=== PATIENT | female | born 1945 | race Caucasian/White ===

== ENCOUNTER 2016-10-19 11:23 | Emergency (ER) ==
[2016-10-19] MEDS ORDERED: NS 1,000 ML IV ONE (11:39)
--- NOTE | 2016-10-19 11:41 | PROVIDER DOCUMENTATION ---
HPI-Syncope/Dizziness - General Chief Complaint: Near Syncope Stated Complaint: syncope Time Seen by Provider: 10/19/16 11:28 Source: patient, EMS Allergies/Adverse Reactions: Patient Allergies Allergy/AdvReac Type Severity Reaction Status Date / Time Penicillins Allergy RASH Verified 08/14/15 16:45 Home Medications: Home Medication List Medication Instructions Recorded Confirmed Last Taken Type Hydrocodone/APAP 10 mg/325 mg 10 mg TID 06/04/14 08/14/15 08/14/15 07:00 History [Regina-10] Levothyroxine [Synthroid] 75 mg PO DAILY 06/04/14 08/14/15 08/14/15 07:00 History Lorazepam [Ativan] 2 mg PO TID 06/04/14 08/14/15 08/14/15 07:00 History Levetiracetam [Keppra] 500 mg PO BID #60 tablet 08/15/15 Unknown Rx - History of Present Illness-Syncope/Dizzy Nature of Presenting Problem: Patient is a 71 y/o F that presents to the ER via EMS after syncopal episode. patient is confused about events that happened. She has had history of syncope and been worked up by . Patient denies chest pain or palpitations. reports having nausea and needing phenergan. She also reports not taking her medications yet. Prior Episodes: reports: single episode today, remote history Onset/Duration: reports: abrupt, just prior to arrival Timing: reports: improving Position/Activity at time of episode: reports: standing (walking) Symptoms prior to episode: reports: none Context: reports: lost consciousness Loss of Consciousness: brief (seconds) Location of injury. (If syncope resulted in an injury.): reports: none Current Symptoms: reports: nausea, weakness. denies: fever, short of breath, vomiting, lightheaded, dizzy, headache Similar symptoms previously: reports: previous diagnosis, tests, workup for same problem Review of Systems - Adult - REVIEW OF SYSTEMS - ADULT Constitutional: denies: chills, fever Eyes: denies: decreased vision, blurred vision, double vision Ears, Nose, Mouth & Throat: denies: ear pain, sinus problem, throat pain, throat swelling Cardiovascular: reports: syncope. denies: chest pain, palpitations Respiratory: denies: cough, shortness of breath, wheezing Gastrointestinal: reports: nausea. denies: abdominal pain, diarrhea, vomiting Genitourinary: reports: no symptoms reported Musculoskeletal: reports: muscle weakness. denies: back pain, joint pain, neck pain Integumentary: reports: no symptoms reported Neurological: reports: syncope. denies: dizziness/vertigo, headache/migraines, seizure Psychiatric: reports: no symptoms reported Endocrine: reports: no symptoms reported Hematologic/Lymphatic: reports: no symptoms reported Allergic/Immunologic: reports: no symptoms reported All Other Systems: Reviewed and Negative Past History - Adult - PAST MEDICAL HISTORY-ADULT Review of Records: reports: Old Records Reviewed, Nursing Assessment Review, Medications Reviewed Cardiovascular: reports: HTN Musculoskeletal: reports: chronic pain, fibromyalgia Psychiatric: reports: anxiety Endocrine/Immune: reports: cancer (melanoma), thyroid disorder - PRIOR SURGERIES/PROCEDURES Surgical/Procedure History: reports: hysterectomy, back/neck - IMMUNIZATION STATUS Childhood Immunizations: See Nurse Assessment Flu Vaccine: See Nurse Assessment - FAMILY HISTORY Family History: reviewed, not pertinent - SOCIAL HISTORY Smoking: cigarettes, less than 1 pack/day Living Situation: family Physical Exam-General - PHYSICAL EXAM-ADULT Initial Vital Signs Reviewed: Yes - CONSTITUTIONAL General Appearance: alert, no apparent distress - EYES Eyes: PERRL/EOMI, pink conjunctivae - HEAD, EARS, NOSE, MOUTH & THROAT HENMT: normocephalic/atraumatic, moist mucous membranes, normal ENT inspection - NECK Neck: non-tender, full range of motion, normal inspection - RESPIRATORY Respiratory: lungs clear, normal breath sounds, no respiratory distress, no accessory muscle use - CARDIOVASCULAR Cardiovascular: regular rate, rhythm, no edema, no murmur - GASTROINTESTINAL (ABDOMEN) Abdominal Exam: normal bowel sounds, non tender, soft, no organomegaly, no pulsatile mass - MUSCULOSKELETAL Back Exam: no CVA tenderness, no vertebral tenderness Extremity: normal range of motion, non-tender, normal inspection, no pedal edema , normal capillary refill, pelvis stable - SKIN Integumentary: normal color, warm/dry - NEUROLOGIC 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 She might have sat on ground prior to have a seizure( history of seizures) Vital Signs Temp Pulse Resp BP Pulse Ox 10/19/16 11:32 97.5 F L 68 20 122/83 99 Penicillins Allergy (Verified 08/14/15 16:45) RASH Hydrocodone/APAP 10 mg/325 mg [Regina-10] 10 mg TID 06/04/14 Levothyroxine [Synthroid] 75 mg PO DAILY 06/04/14 Lorazepam [Ativan] 2 mg PO TID 06/04/14 Levetiracetam [Keppra] 500 mg PO BID #60 tablet 08/15/15 Laboratory 10/19/16 10/19/16 10/19/16 13:00 13:00 12:34 WBC RBC Hgb Hct MCV MCH MCHC RDW Std Deviation Plt Count MPV Immature Gran % (Auto) Neut % (Auto) Lymph % (Auto) [place] % (Auto) Eos % (Auto) Baso % (Auto) Immature Gran # (Auto) Neut # (Auto) Lymph # (Auto) [place] # (Auto) Eos # (Auto) Baso # (Auto) PT 14.0 INR 1.05 APTT (Factor Assay) 32.6 Sodium Potassium Chloride Carbon Dioxide Anion Gap BUN Creatinine Estimated GFR/1.73 m2 BUN/Creatinine Ratio Glucose Calculated Osmolality Calcium Total Bilirubin AST ALT Alkaline Phosphatase Creatine Kinase Troponin T Total Protein Albumin Globulin Albumin/Globulin Ratio Plasma Lactate Urine Source CLEAN CATCH Urine Color YELLOW Urine Clarity CLEAR Urine pH 6.5 Ur Specific [place] 1.010 Urine Protein NEGATIVE Urine Ketones NEGATIVE Urine Blood NEGATIVE Urine Nitrite NEGATIVE Urine Bilirubin NEGATIVE Urine Urobilinogen NORMAL Urine WBC NEGATIVE Urine Glucose NEGATIVE Urine Opiates Screen PRESUMPTIVE POSITIVE A Ur Oxycodone Screen NONE DETECTED Urine Methadone Screen NONE DETECTED Ur Barbituates Screen NONE DETECTED Ur Tricyclics Screen NONE DETECTED Ur Phencyclidine Scrn NONE DETECTED Ur Amphetamines Screen NONE DETECTED U Methamphetamines Scrn NONE DETECTED Urine MDMA Screen NONE DETECTED U Benzodiazepines Scrn NONE DETECTED Urine Cocaine Screen NONE DETECTED U Cannabinoids Screen NONE DETECTED Plasma/Serum Ethyl Alc 10/19/16 10/19/16 10/19/16 12:34 12:34 12:34 WBC 6.60 RBC 3.96 L Hgb 12.1 Hct 36.7 L MCV 92.7 MCH 30.6 MCHC 33.0 RDW Std Deviation 13.1 Plt Count 290 MPV 9.9 Immature Gran % (Auto) 0.2 Neut % (Auto) 71.9 Lymph % (Auto) 20.9 [place] % (Auto) 5.0 Eos % (Auto) 0.9 Baso % (Auto) 1.1 H Immature Gran # (Auto) 0.01 Neut # (Auto) 4.75 Lymph # (Auto) 1.38 [place] # (Auto) 0.33 Eos # (Auto) 0.06 Baso # (Auto) 0.07 PT INR APTT (Factor Assay) Sodium Potassium Chloride Carbon Dioxide Anion Gap BUN Creatinine Estimated GFR/1.73 m2 BUN/Creatinine Ratio Glucose Calculated Osmolality Calcium Total Bilirubin AST ALT Alkaline Phosphatase Creatine Kinase Troponin T < 0.010 Total Protein Albumin Globulin Albumin/Globulin Ratio Plasma Lactate Urine Source Urine Color Urine Clarity Urine pH Ur Specific [place] Urine Protein Urine Ketones Urine Blood Urine Nitrite Urine Bilirubin Urine Urobilinogen Urine WBC Urine Glucose Urine Opiates Screen Ur Oxycodone Screen Urine Methadone Screen Ur Barbituates Screen Ur Tricyclics Screen Ur Phencyclidine Scrn Ur Amphetamines Screen U Methamphetamines Scrn Urine MDMA Screen U Benzodiazepines Scrn Urine Cocaine Screen U Cannabinoids Screen Plasma/Serum Ethyl Alc 10/19/16 10/19/16 12:34 12:34 WBC RBC Hgb Hct MCV MCH MCHC RDW Std Deviation Plt Count MPV Immature Gran % (Auto) Neut % (Auto) Lymph % (Auto) [place] % (Auto) Eos % (Auto) Baso % (Auto) Immature Gran # (Auto) Neut # (Auto) Lymph # (Auto) [place] # (Auto) Eos # (Auto) Baso # (Auto) PT INR APTT (Factor Assay) Sodium 138 Potassium 3.4 L Chloride 103 Carbon Dioxide 23 L Anion Gap 13 BUN 14 Creatinine 1.0 H Estimated GFR/1.73 m2 55 BUN/Creatinine Ratio 14 Glucose 168 H Calculated Osmolality 280 Calcium 9.0 Total Bilirubin 0.20 AST 15 ALT 7 L Alkaline Phosphatase 84 Creatine Kinase 64 Troponin T Total Protein 6.9 Albumin 4.0 Globulin 3.0 Albumin/Globulin Ratio 1.0 Plasma Lactate 3.4 H Urine Source Urine Color Urine Clarity Urine pH Ur Specific [place] Urine Protein Urine Ketones Urine Blood Urine Nitrite Urine Bilirubin Urine Urobilinogen Urine WBC Urine Glucose Urine Opiates Screen Ur Oxycodone Screen Urine Methadone Screen Ur Barbituates Screen Ur Tricyclics Screen Ur Phencyclidine Scrn Ur Amphetamines Screen U Methamphetamines Scrn Urine MDMA Screen U Benzodiazepines Scrn Urine Cocaine Screen U Cannabinoids Screen Plasma/Serum Ethyl Alc Orders Category Date Time Status Cardiac Monitoring DIRECTED Care 10/19/16 11:41 Active Saline Loc NOW Care 10/19/16 11:41 Active CHEST-1 VIEW [RAD] Stat Exams 10/19/16 11:41 Completed HEAD W/O CONTRAST [CT] Stat Exams 10/19/16 11:41 Draft ALCOHOL BLOOD Stat Lab 10/19/16 12:34 Completed CBC WITH ELECTRONIC DIFF [HEME] Stat Lab 10/19/16 12:34 Completed CK PROFILE [SP CHEM] Stat Lab 10/19/16 12:34 Completed COMPREHENSIVE METABOLIC PANEL [CHEM] Stat Lab 10/19/16 12:34 Completed LACTATE, PLASMA [CHEM] Stat Lab 10/19/16 12:34 Completed PROTIME WITH INR PL [COAG] Stat Lab 10/19/16 12:[address] [COAG] Stat Lab 10/19/16 12:34 Completed TROPONIN T Stat Lab 10/19/16 12:[address] W/POSS RFLX CULT [URINALYSIS] Stat Lab 10/19/16 13:00 Results [address] DRUG SCREEN [address] Stat Lab 10/19/16 13:00 Completed 0.9% Sodium Chloride Inj [Ns] 1,000 ml Med 10/19/16 11:39 Discontinued IV 500 mls/hr Pulse Oximetry Stat Oth 10/19/16 11:41 Active EKG [EKG] Stat Ther 10/19/16 11:41 Draft pt will be d/c home to f/u with pcp, pt was clinically and neurologically stable , pt wants to go eat Syrian food with they are talking about which place - EKG 1 Time of EKG reading by physician:: 11:49 EKG Read and Signed by:: Vita Torrez EKG Interpretation (*Must complete 3 of following elements*): Normal Rate: 69 Rhythm: NSR Mona: normal QRS: normal [place] Interval: normal ST Wave: normal - XRAY 1 XRAY Study: Chest Impression: Normal XRAY Interpretation: nad - CT/MRI 1 CT Study: Head Impression: Normal CT Results: nad Departure - Departure Time of Disposition Order: 14:07 DIAGNOSIS: Near syncope Disposition: HOME 01 Certified Medical Emergency: Emergent Condition: Stable Additional Instructions: ED Follow Up Instructions: You have been treated by a care provider in the Emergency Department. These instructions are being provided to you so you can have an understanding of how to care for yourself upon discharge. Upon discharge from the Emergency Department, you are responsible for making arrangements for follow-up care by a physician of your choice. Take all prescribed medications as directed. Return to the Emergency Department immediately for any new or worsening symptoms. You may call the Physician Referral phone number at [phone] to obtain a list of Physicians who are taking new patients. Referrals: Piero Dao MD [Primary Care Provider] - Call for Appoint. 1-2days Instructions: Near-Syncope, [id number] Attestation - Scribe Verification/Attestation Scribe:: Arsenio Loza Acting as Scribe for:: Vita Torrez Scribe documention review:: This chart was documented by a scribe and accurately reflects the service the provider performed and the decisions made by the provider. Physician Attestation - Physician Attestation I, the provider, attest to the following statement:: Vita Torrez Physician documentation Attestation:: This documentation recorded by the scribe accurately reflects the service I personally performed and the decisions made by me.
--- NOTE | 2016-10-19 12:03 | EKG Report ---
Test Performed on : 10/19/2016 11:49:42 AM Test Reason : AMS Blood Pressure : / mmHG Vent. Rate : 069 BPM Atrial Rate : 069 BPM P-R Int : 158 ms QRS Dur : 078 ms QT Int : 406 ms P-R-T Axes : 067 060 049 degrees QTc Int : 435 ms Normal sinus rhythm. Normal ECG No previous ECGs available Unconfirmed Result
[2016-10-19 12:49] LABS: MANUAL DIFF NEEDED? NO
[2016-10-19 12:56] LABS: BASO% 1.1 % (0.0-0.8); EOS# 0.06 X1000 (0.0-0.7); EOS% 0.9 % (0.0-10.0); HEMATOCRIT 36.7 % (37.0-47.0); HEMOGLOBIN 12.1 g/dL (12.0-16.0); IMM GRAN# 0.01 X1000 (0.0-0.04); IMM GRAN% 0.2 % (0.0-0.5); LYMPH# 1.38 X1000 (1.2-3.4); LYMPH% 20.9 % (20.5-51.1); MCH 30.6 PG (27-31); MCV 92.7 FL (81-99); MONO# 0.33 X1000 (0.11-0.59); MPV 9.9 FL (7.4-10.4); NEUT% 71.9 % (42.2-75.2); PLT 290 X1000 (130-400); RBC 3.96 XMIL (4.2-5.4)
[2016-10-19 13:17] LABS: INR 1.05 (0.86-1.15)
[2016-10-19 13:18] LABS: POTASSIUM 3.4 mmol/L (3.5-5.1); PTT PL 32.6 Seconds (22.6-43.9); TOTAL BILIRUBIN 0.2 mg/dL (0.20-1.00); TOTAL PROTEIN 6.9 g/dL (6.3-8.3)
[2016-10-19 13:25] LABS: URINE CULTURE PL NEEDED? NO; URINE SOURCE CLEAN CATCH
--- NOTE | 2016-10-19 13:37 | Diag Imaging Result Document ---
PROCEDURE NAME: CHEST-1 VIEW - 10/19/2016 AP CHEST: FINDINGS: There is no evidence of acute cardiac or pulmonary disease. Compared to 06/04/2014, there has been no significant change. IMPRESSION: No acute disease.
--- NOTE | 2016-10-19 13:50 | Diag Imaging Result Document ---
PROCEDURE NAME: HEAD W/O CONTRAST - 10/19/2016 CT OF THE HEAD WITHOUT CONTRAST: FINDINGS: There are calcifications in the internal carotid arteries bilaterally. There is hyperostosis of the calvarium. There is no evidence of bleed, mass effect, or abnormal extra- axial fluid collection. Compared to 08/14/2015, there has been no significant change in the appearance of the brain. IMPRESSION: No evidence of acute disease.
[2016-10-19 13:51] LABS: BILIRUBIN URINE NEGATIVE (NEGATIVE); BLOOD URINE NEGATIVE (NEGATIVE); CLARITY CLEAR (CLEAR); COLOR YELLOW; GLUCOSE URINE NEGATIVE (NEGATIVE); LEUKOCYTES URINE NEGATIVE (NEGATIVE); NITRITE URINE NEGATIVE (NEGATIVE); PH URINE 6.5; PROTEIN URINE NEGATIVE (NEGATIVE); UROBILINOGEN URINE NORMAL
[2016-10-19 13:54] LABS: UR AMPHETAMINES QUAL NONE DETECTED (NONE DETECT); UR BARBITUATES QUAL NONE DETECTED (NONE DETECT); UR BENZODIAZEPIN QUAL NONE DETECTED (NONE DETECT); UR CANNABINOIDS QUAL NONE DETECTED (NONE DETECT); UR COCAINE QUAL NONE DETECTED (NONE DETECT); UR MDMA QUAL NONE DETECTED (NONE DETECT); UR METHADONE QUAL NONE DETECTED (NONE DETECT); UR METHAMPHETAMINE QUAL NONE DETECTED (NONE DETECT); UR OPIATES QUAL PRESUMPTIVE POSITIVE (NONE DETECT); UR OXYCODONE QUAL NONE DETECTED (NONE DETECT); UR PCP QUAL NONE DETECTED (NONE DETECT); UR TCA QUAL NONE DETECTED (NONE DETECT)
[2016-10-19 13:55] LABS: URINE EPITHELIAL CELLS <10 /HPF (<10); URINE RBC <10 /HPF (<10); URINE WBC <10 /HPF (<10)
[2016-10-19 14:29] VITALS: BP 151/91
== END 2016-10-19 19:04 | disposition home or self-care (01) ==
LOC: P.ED 11:23
DX: R55 Syncope and collapse (principal); R11.0 Nausea; M62.81 Muscle weakness (generalized); I10 Essential (primary) hypertension; M79.7 Fibromyalgia; G89.29 Other chronic pain; Z85.820 Personal history of malignant melanoma of skin; E07.9 Disorder of thyroid, unspecified; Z79.899 Other long term (current) drug therapy; F41.9 Anxiety disorder, unspecified; F17.210 Nicotine dependence, cigarettes, uncomplicated
CPT/HCPCS: 36415; 70450; 71010; 80053; 80305; 81001; 82550; 82948; 83605; 84484; 85025; 85610; 85730; 93005; 96360; 96361; G0480; J7030; 80320

== ENCOUNTER 2019-08-29 21:48 | Inpatient (IN) ==
[2019-08-29] MEDS ORDERED: NS 500 ML IV ONE (22:18)
--- NOTE | 2019-08-29 22:23 | EKG Report ---
Test Performed on : 08/29/2019 9:56:42 PM Test Reason : weakness Blood Pressure : / mmHG Vent. Rate : 098 BPM Atrial Rate : 098 BPM P-R Int : 134 ms QRS Dur : 082 ms QT Int : 336 ms P-R-T Axes : 047 043 056 degrees QTc Int : 428 ms Normal sinus rhythm. Normal ECG When compared with ECG of 18-OCT-2018 20:49, No significant change was found Unconfirmed Result
[2019-08-29 22:24] LABS: URINE SOURCE CATH
[2019-08-29 22:30] LABS: BASO# 0.07 X1000 (0.0-0.2); BASO% 0.9 % (0.0-0.8); EOS# 0.03 X1000 (0.0-0.7); EOS% 0.4 % (0.0-10.0); HEMATOCRIT 31.5 % (37.0-47.0); HEMOGLOBIN 10.1 g/dL (12.0-16.0); IMM GRAN# 0.13 X1000 (0.0-0.04); IMM GRAN% 1.7 % (0.0-0.5); LYMPH# 1.74 X1000 (1.2-3.4); LYMPH% 22.9 % (20.5-51.1); MCH 29.8 PG (27-31); MCHC 32.1 g/dL (33-37); MCV 92.9 FL (81-99); MONO# 0.87 X1000 (0.11-0.59); MONO% 11.5 % (1.7-9.3); NEUT# 4.75 X1000 (1.4-6.5); NEUT% 62.6 % (42.2-75.2); PLT 215 X1000 (130-400); RBC 3.39 XMIL (4.2-5.4); RDW 13.3 % (11.5-14.5); WBC 7.59 X1000 (4.8-10.8)
[2019-08-29 22:36] LABS: BILIRUBIN URINE NEGATIVE (NEGATIVE); BLOOD URINE NEGATIVE (NEGATIVE); COLOR YELLOW; GLUCOSE URINE NEGATIVE (NEGATIVE); KETONE URINE NEGATIVE (NEGATIVE); LEUKOCYTES URINE NEGATIVE (NEGATIVE); NITRITE URINE NEGATIVE (NEGATIVE); PH URINE 5.5; PROTEIN URINE 30 mg/dL (NEGATIVE); SP GRAVITY URINE 1.021; TURBIDITY URINE HAZY (CLEAR); UROBILINOGEN URINE NORMAL (NORMAL)
[2019-08-29 22:38] LABS: INR 1.09; PROTIME 14.7 Seconds (11.0-16.0)
[2019-08-29 22:39] LABS: PTT 40.4 Seconds (22.3-41.8)
[2019-08-29 22:45] LABS: ALBUMIN 3.6 g/dL (3.5-5.0); CALCIUM 10.9 mg/dL (8.8-10.2); CREATININE 1.7 mg/dL (0.5-0.9); POTASSIUM 4.1 mmol/L (3.5-5.1); TOTAL BILIRUBIN 0.5 mg/dL (0.20-1.00); TOTAL PROTEIN 7.3 g/dL (6.3-8.3)
[2019-08-29 22:51] LABS: UR EPITHELIAL CELLS <10 /HPF (<10); URINE BACTERIA 2+ /HPF; URINE CASTS GRANULAR PRESENT; URINE CRYSTALS NONE SEEN; URINE RBC <10 /HPF (<10); URINE SMALL ROUND CELLS NONE SEEN; URINE WBC <10 /HPF (<10); URINE YEAST NONE SEEN
[2019-08-30 00:01] LABS: INFLUENZA A NEGATIVE (NEGATIVE); INFLUENZA B NEGATIVE (NEGATIVE)
[2019-08-30] MEDS ORDERED: NS 500 ML IV ONE (00:37)
[2019-08-30 03:39] LABS: BE 0.5 mmoll (-3.0-3.0); BLOOD TYPE ARTERIAL; HCO3-(ACT) 25.2 mmoll (20.0-26.0); METHB 1.6 % (0.0-1.5); O2(CT) 12.4 mL/dL (15.0-23.0); O2HB 92.6 % (95.0-99.0); PCO2(98.6) 35 mmHg (35-45); PO2(98.6) 68 mmHg (60-100); SAMPLE BLOOD; THB 9.5 g/dL (11.5-17.4); pH(98.6) 7.45 (7.35-7.45)
[2019-08-30 03:41] LABS: ALLEN TEST YES; MODALITY ROOM AIR
[2019-08-30] MEDS ORDERED: ZOFRAN ODT PO PRN (05:09)
[2019-08-30] MEDS ORDERED: NS 1,000 ML IV SCH (05:09)
--- NOTE | 2019-08-30 05:40 | Diag Imaging Result Doc PS360 ---
EXAM: CT THORAX W/O CONTRAST HISTORY: multiple recent falls. R rib pain TECHNIQUE: CT chest without intravenous contrast COMPARISON: None. FINDINGS: Trace right pleural fluid. No left pleural fluid. No pneumothoraces. No lung contusion. No cardiomegaly. No aortic aneurysm. There is at least moderate coronary artery atherosclerosis. No enlarged mediastinal or hilar lymph nodes. No distinct lung nodules. There are multiple small lytic lesions scattered throughout the thoracic spine. There are multiple bilateral ribs with lytic destructive areas. Poorly defined soft tissue masslike area posteriorly in the mid right breast measuring 14 x 20 mm. IMPRESSION: 1.Scattered lytic lesions throughout the skeleton highly suspicious for bony metastases 2.Possible right breast mass. Mammography recommended. 3.A preliminary report was given at 2:38 AM This exam was performed using automated exposure control, adjustment of mA or kV according to patient size, and/or use of iterative reconstruction technique. Electronically signed by Tee Joshua 08/30/2019 5:37 AM
--- NOTE | 2019-08-30 05:45 | Diag Imaging Result Doc PS360 ---
EXAM: CHEST-1 VIEW HISTORY: weakness, cough, R rib pain. TECHNIQUE: Single view COMPARISON: 10/19/2016 FINDINGS: The lungs are well expanded. No pneumothoraces. The heart is not enlarged. The vessels are not distended. There are increased interstitial markings in the left lung base. No effusion identified. IMPRESSION: Small infiltrate in the left lung base. Electronically signed by Tee Joshua 08/30/2019 5:42 AM
[2019-08-30] MEDS: TYLENOL PO PRN (06:13)
--- NOTE | 2019-08-30 12:57 | Diag Imaging Result Doc PS360 ---
CT HEAD W/O CONTRAST - 08/30/2019 INDICATION: rule out mets/lethargy COMPARISON: 10/18/2018 FINDINGS: The ventricles and sulci are normal in size and contour. No intracranial mass or hemorrhage. The skull is intact. The sinuses mastoids and middle ears are clear. IMPRESSION: Negative exam. This exam was performed using automated exposure control, adjustment of mA or kV according to patient size, and/or use of iterative reconstruction technique Electronically signed by David Carrillo 08/30/2019 12:55 PM
[2019-08-30] MEDS ORDERED: KEPPRA PO SCH (14:45)
[2019-08-30] MEDS: NS 1,000 ML IV SCH (15:51)
[2019-08-30] MEDS: AVAPRO PO SCH (15:51)
--- NOTE | 2019-08-30 15:53 | PKW MAMMO BIRAD PRINTS ---
DIGITAL BILAT MAMMOGRAM DIAG, US BREAST LIMITED UNILAT-RT 08/30/2019 COMPARISON: There are no comparison films TECHNIQUE: Computer aided detection imaging was used. FINDINGS: There are benign calcifications in the breasts. No suspicious calcifications. Mild asymmetry in the parenchymal distribution. There is increased density posteriorly in the outer right breast. This area is only partly included on the exam. Ultrasound demonstrates a 13 x 15 x 23 mm hypoechoic solid irregular mass with posterior shadowing. IMPRESSION: Suspicious mass in the right posterior breast. Biopsy recommended. ACR BI-RADS CATEGORY 5: HIGHLY SUGGESTIVE OF MALIGNANCY, APPROPRIATE ACTION SHOULD BE TAKEN. NOTE: This facility is accredited by the [employer] for Mammography. A mammogram report should not delay biopsy if a dominant or clinically suspicious mass is present. Some cancers are not identified by mammography. Adenosis and dense breasts may obscure any underlying neoplasm Electronically signed by Tee Joshua 08/30/2019 3:51 PM
[2019-08-30] MEDS: ULTRAM PO PRN (15:55)
[2019-08-30] MEDS ORDERED: ATIVAN PO SCH (21:00)
[2019-08-31] MEDS: ATIVAN PO SCH ×3 (01:20→20:31)
[2019-08-31] MEDS: NS 1,000 ML IV SCH ×3 (01:21→18:50)
[2019-08-31] MEDS: AVAPRO PO SCH ×3 (01:21→20:31)
[2019-08-31] MEDS: SYNTHROID PO SCH (06:26)
[2019-08-31] MEDS: ULTRAM PO PRN (09:48)
[2019-08-31] MEDS: TYLENOL PO PRN (15:35)
[2019-09-01] MEDS: TYLENOL PO PRN (02:48)
[2019-09-01] MEDS: NS 1,000 ML IV SCH (02:50)
[2019-09-01 04:45] VITALS: BP 135/65
[2019-09-01] MEDS: SYNTHROID PO SCH (06:05)
[2019-09-01 08:09] LABS: BASO# 0.05 X1000 (0.0-0.2); BASO% 0.7 % (0.0-0.8); EOS# 0.17 X1000 (0.0-0.7); EOS% 2.4 % (0.0-10.0); HEMOGLOBIN 8.7 g/dL (12.0-16.0); IMM GRAN% 5.7 % (0.0-0.5); LYMPH# 2.31 X1000 (1.2-3.4); LYMPH% 32.9 % (20.5-51.1); MCH 29.6 PG (27-31); MCHC 31.1 g/dL (33-37); MCV 95.2 FL (81-99); MONO% 5.7 % (1.7-9.3); NEUT% 52.6 % (42.2-75.2); PLT 247 X1000 (130-400); RBC 2.94 XMIL (4.2-5.4); RDW 13.5 % (11.5-14.5); WBC 7.03 X1000 (4.8-10.8)
[2019-09-01 08:24] LABS: ALBUMIN 2.7 g/dL (3.5-5.0); CALCIUM 9.8 mg/dL (8.8-10.2); CREATININE 1.1 mg/dL (0.5-0.9); POTASSIUM 4.3 mmol/L (3.5-5.1); TOTAL BILIRUBIN 0.2 mg/dL (0.20-1.00); TOTAL PROTEIN 6.5 g/dL (6.3-8.3)
[2019-09-01] MEDS: AVAPRO PO SCH (08:56)
--- NOTE | 2019-09-01 10:36 | HISTORY AND PHYSICAL ---
HISTORY OF PRESENT ILLNESS: This is a 74-year-old female who presented to the emergency room brought in by EMS complaining of right shoulder pain that radiated to her chest. Not sure when the pain began. She is alert and oriented but drowsy and weak. She states she has been coughing a lot and having this sharp pain and cannot really remember when it started. Nothing she has done has really affected it, but her son brought her in mostly because she was kind of lethargic. PAST MEDICAL HISTORY: She has had previous hysterectomy but still has her ovaries, back and neck surgery, multiple melanomas taken off of her body in the past. She has a history of hypothyroidism for years on replacement therapy. No other problems with her adrenal glands, pituitary or parathyroids. She has a long-standing history of hypertension, long-standing history of thyroid hormonal replacement therapy. She has chronic pain and fibromyalgia for years. She has a history of uncomplicated hypertension. SOCIAL HISTORY: She is an ex-smoker, denies substance use. ALLERGIES: Azithromycin and penicillin. REVIEW OF SYSTEMS: It is sort of compromised because of her lethargic mental status. Constitutional: She denies any significant fever, chills, radiation, weight gain, weight loss. Eyes: No change in visual acuity. ENT: No irritation. EOMs intact. Nares patent. Oropharynx negative. Neck: Supple, bounding carotids. Without thyromegaly. Midline trachea. No lymphadenopathy. Chest: Rhonchi and diminished breath sounds bilaterally. No consolidative features. No rubs were appreciated. Cardiovascular: She has a regular rhythm and rate. No murmurs, gallops, clicks or rubs. Abdomen: Soft, no hepatosplenomegaly. No CVA tenderness. No melena, hematochezia or hematemesis. Breasts: Negative. Genitourinary: No dysuria, polyuria, pyuria. Musculoskeletal: She has some chronic joint pains in the right shoulder and right chest primarily. Skin: No lesions recently. Neurologic: No focal neurological deficits. No headaches, migraines, seizure disorder. Psychiatric: She has had some issues with depression in the past, chronic anxiety, chronic pain. Hematological: No bleeding or clotting issues. PHYSICAL EXAMINATION: VITAL SIGNS: At time of admission temperature 98.4, pulse 99, respiratory rate 20, blood pressure 102/64, O2 sat 93%. HEENT: Head was normocephalic. Eyes: PERRL, EOMs intact. SC clear. Nares patent. Oropharynx negative. NECK: Supple. Bounding carotids. Without thyromegaly or lymphadenopathy. CHEST: Diminished breath sounds bilaterally. BREASTS: Negative. ABDOMEN: No hepatosplenomegaly. No CVA tenderness. EXTREMITIES: Negative for clubbing, cyanosis or edema. NEUROLOGICAL: No focal neurological deficits. In the ER her chest x-ray on admission showed the lungs well expanded, no pneumothoraces. The heart is not enlarged. Vessels are not distended. There is increased interstitial markings in the left lung base. No effusion. Plus/minus a small infiltrate in the left lung base. She had a head CT because there had been some issues that she might be confused. It was negative. She had a CT of the chest which showed trace right pleural fluid. No left pleural fluid. No pneumothorax. No lung contusions. No cardiomegaly. No aortic aneurysm. There is at least a moderate coronary artery atherosclerosis. No enlarged mediastinal or hilar lymph nodes. No distinct lung nodules. There are multiple small lytic lesions scattered throughout the thoracic spine. There are multiple bilateral ribs with lytic destructive areas. Poorly defined soft tissue masslike area posteriorly in the right breast measuring 1.4 cm x 2.0 cm. She was admitted for further evaluation of suspected metastatic disease, COPD, history of melanoma, thyroid hormone replacement, fibromyalgia, chronic pain, anxiety. cc: Piero Dao MD
--- NOTE | 2019-09-01 10:46 | PROGRESS NOTE ---
DATE: 08/30/2019 Temperature was 98.4, pulse 80, respiratory rate 17, BP 120/69, and O2 saturation 96% on room air. She had a head CT done which showed a negative exam. She had a chest CT done which showed lytic lesions but nothing else; possibly a right breast mass. She had a 08/30 mammogram. There are benign calcifications in the breasts. No suspicious calcifications. Mild asymmetry of the parenchymal distribution. There is increased density posterior in the outer right breast. The area is only partially included in the exam. Ultrasound demonstrates a 1.3 x 1.5 x 2.3 mm hypoechoic solid irregular mass with posterior shadowing suspicious for right posterior breast cancer. We discussed with Dr. Nunes and he thinks that she needs a biopsy of the aforementioned lesion and he is going to let us know when he is going to be available to do that. Otherwise, the patient is waking up. She is not on as much Ativan. She typically does more with the program. She is just complaining of skeletal pain in the right side of her thorax primarily. cc: Piero Dao MD
--- NOTE | 2019-09-01 10:58 | PROGRESS NOTE ---
DATE: 08/31/2019 SUBJECTIVE: Abiola Goldman is an intermittent patient of mine. She takes irbesartan 150 mg b.i.d. for her blood pressure, Synthroid 75 mg p.o. daily, lorazepam 2 mg p.o. t.i.d. p.r.n., Ultracet, and cyclobenzaprine. OBJECTIVE: Vital Signs: Temperature is 98, pulse 88, respiratory rate 20, and BP 149/75. HEENT: Head was normocephalic. Eyes, ears, nose, and throat were negative. Breasts: We felt of her breasts and really did not feel anything of any consequence. She still has her ovaries. She has had a hysterectomy. She has had multiple myeloma. ASSESSMENT AND PLAN: I talked with Dr. Nunes and he wants to just do it as an outpatient so we are going to send her to his office and left him further stage this presumed cancer. cc: Piero Dao MD
[2019-09-01] MEDS: ATIVAN PO SCH (13:57)
[2019-09-01] MEDS ORDERED: FLU VACCINE IM ONE (14:34)
--- NOTE | 2019-09-24 23:40 | PROVIDER DOCUMENTATION ---
This chart was entered by Dilcia Salas Scribe, acting as scribe for Paz Guerra DO. HPI-Musculoskeletal Pain/Inj - GENERAL Chief Complaint: Weakness Stated Complaint: right shoulder hurting for 2 wks, Time Seen by Provider: 08/29/19 22:04 - HX OF PRESENT ILLNESS-MUSKULOSKELTAL Nature of Presenting Problem: Pt is a 74 yof who presents to the ED via EMS with a cc of R shoulder pain that radiates to her R chest. Pt states that she doesnt know when the pain began. Pt is alert and oriented but drowsy and weak. Pt reports coughing. Quality of Pain: reports: sharp Severity in ED: mild Onset/Duration: unsure Timing: still present Modifying Factors: improves with: nothing - UPPER EXTREMITY PAIN/INJURY Extremities Pain Location: shoulder: right (w/ radiation to R chest ) Context / Method of Injury: reports: unknown Associated Symptoms: reports: denies symptoms Review of Systems - Adult - REVIEW OF SYSTEMS - ADULT ROS:: limited per condition (pt mental status) Constitutional: reports: see HPI Eyes: reports: no symptoms reported Ears, Nose, Mouth & Throat: reports: no symptoms reported Cardiovascular: reports: no symptoms reported Respiratory: reports: no symptoms reported Gastrointestinal: reports: no symptoms reported Genitourinary: reports: no symptoms reported Musculoskeletal: reports: see HPI, joint pain (R shoulder w/ radiation to R chest) Integumentary: reports: no symptoms reported Neurological: reports: no symptoms reported Psychiatric: reports: no symptoms reported Endocrine: reports: no symptoms reported Hematologic/Lymphatic: reports: no symptoms reported Allergic/Immunologic: reports: no symptoms reported All Other Systems: Reviewed and Negative Past History - Adult - PAST MEDICAL HISTORY-ADULT Review of Records: reports: Old Records Reviewed, Nursing Assessment Review, Medications Reviewed, Social history reviewed & non-contributory. Major Childhood Illnesses: reports: denies history Cardiovascular: reports: HTN Respiratory: reports: denies history Gastrointestinal: reports: denies history Obstetrical/Gynecological: reports: denies history Genitourinary: reports: denies history Musculoskeletal: reports: chronic pain, fibromyalgia Neurological: reports: denies history Psychiatric: reports: anxiety Endocrine/Immune: reports: cancer (melanoma), thyroid disorder Other Conditions: reports: denies history - PRIOR SURGERIES/PROCEDURES Surgical/Procedure History: reports: hysterectomy, back/neck - IMMUNIZATION STATUS Childhood Immunizations: See Nurse Assessment Flu Vaccine: See Nurse Assessment - FAMILY HISTORY Family History: reviewed, not pertinent - SOCIAL HISTORY Smoking: quit greater than 1 year, cigarettes Substance Use: denies Living Situation: family Physical Exam-Injury Related - Physical Exam-Injury Related Exam Limited by: pt mental status Initial Vital Signs Reviewed: Yes General Appearance: alert, no apparent distress Eyes: PERRL/EOMI, pink conjunctivae Head, Ears, Nose, Mouth & Throat: normocephalic/atraumatic. negative: normal ENT inspection (dry tongue) Neck: non-tender, normal inspection Respiratory: lungs clear (bilateral), normal breath sounds, no pleuratic chest pain, no respiratory distress, tenderness (R chest wall). negative: chest non- tender Cardiovascular: normal peripheral pulses, regular rate, rhythm, no edema, no gallop, no JVD, no murmur. negative: bradycardia, tachycardia Abdominal Exam: non tender, soft Back Exam: normal inspection, no CVA tenderness, no vertebral tenderness Extremity: normal range of motion, non-tender, normal inspection, normal capillary refill Integumentary: normal color, warm/dry. negative: cyanosis, diaphoresis Neurologic: other (appears weak, somnolent, difficult to arouse.). negative: focal weakness Psych/Mental Status: other (Pt is alert and oriented to date and time but somnolent and weak) - Glascow Coma Score Best Eye Response (Jigar): (4) open spontaneously Best Verbal Response (Jigar): (5) oriented Best Motor Response (Britton): (6) obeys commands Jigar Total: 15 Progress - PLAN OF CARE/RESULTS Progress/Plan/Lab Results: Orders Category Date Time Status Admit - [facility] Routine AdmDCTranf 08/30/19 05:09 Active Activity - Bed Rest with BRP ORDERED Care 08/30/19 05:09 Active Cardiac Monitoring DIRECTED Care 08/29/19 22:20 Completed [place] Cath Insertion ORDERED Care 08/29/19 22:21 Completed IV Insertion ORDERED Care 08/29/19 22:20 Completed Resuscitation Status Routine Care 08/30/19 03:30 Completed Saline Loc DIRECTED Care 08/30/19 05:09 Completed Vital Signs Order Q 8-HR ASSESS Care 08/30/19 05:09 Active Z-Document. for Tele Applied ORDERED Care 08/30/19 05:09 Completed Regular Diet Diet 08/30/19 05:09 Completed CHEST-1 VIEW [RAD] Stat Exams 08/29/19 22:[address] THORAX W/O CONTRAST [CT] Stat Exams 08/30/19 01:01 Completed ABG [RESP] Routine Lab 08/30/19 03:28 Completed BLOOD CULTURE [BLDCUL] Stat Lab 08/29/19 22:10 Completed BNP [PRO B-NATRIURETIC PEPTIDE] Stat Lab 08/29/19 22:05 Completed CBC WITH DIFF [HEME] Stat Lab 08/29/19 22:05 Completed CK PROFILE [SP CHEM] Stat Lab 08/29/19 22:05 Completed COMPREHENSIVE METABOLIC PANEL [CHEM] Stat Lab 08/29/19 22:05 Completed Flu [INFLUENZA SCREEN PL] Stat Lab 08/29/19 23:20 Completed LACTATE, PLASMA [CHEM] Stat Lab 08/29/19 22:05 Completed PROTIME WITH INR [COAG] Stat Lab 08/29/19 22:05 Completed PTT [COAG] Stat Lab 08/29/19 22:05 Completed TROPONIN T HIGH SENSITIVITY Stat Lab 08/29/19 22:05 Completed UA NIMS W/REFLEX CULT [URINALYSIS] Stat Lab 08/29/19 22:05 Completed URINE CULTURE [RM] Routine Lab 08/29/19 22:51 Completed URINE MANUAL MICROSCOPIC [URINALYSIS] Stat Lab 08/29/19 22:05 Completed 0.9% Sodium Chloride Inj [Ns] 1,000 ml Med 08/30/19 05:09 Discontinued IV 75 mls/hr 0.9% Sodium Chloride Inj [Ns] 500 ml Med 08/29/19 22:18 Discontinued IV 999 mls/hr 0.9% Sodium Chloride Inj [Ns] 500 ml Med 08/30/19 00:37 Discontinued IV 999 mls/hr Acetaminophen [Tylenol] Med 08/30/19 05:09 Discontinued 650 mg PO Q6H PRN PRN Ondansetron Odt [Zofran Odt] Med 08/30/19 05:09 Discontinued 4 mg PO Q4-6H PRN PRN Oxygen Device Stat Oth 08/29/19 22:20 Completed Telemetry [OM.EQ] Routine Oth 08/30/19 05:09 Active EKG [EKG] Stat Ther 08/29/19 22:18 Draft Transfer/Admit Order [TRANSFER] Routine Transfer 08/30/19 03:25 Completed Clinically stable under my care. She appeared more alert following iv fluids. Head CT WNL. Chest CT very suspicious for breast malignancy with mets. I am concerned also for polypharmacy, as she is on multiple sedating meds. She was admitted to Dr Dao for further eval and tx. Result Diagrams: 09/01/19 07:49 09/01/19 07:49 - EKG 1 Time of EKG reading by physician:: 21:57 EKG Read and Signed by:: Paz Guerra EKG Interpretation (*Must complete 3 of following elements*): Normal Rate: 98 Rhythm: NSR [place]: normal QRS: normal OK Interval: normal ST Wave: normal Prior EKG Comparison: no prior EKG Departure - Departure Date of Disposition Decision: 08/30/19 Time of Disposition Decision: 01:00 DIAGNOSIS: Dehydration, Weakness Breast cancer Qualifiers: Breast location: unspecified site of breast Estrogen receptor status: unspecif ied Patient sex: female Laterality: right Qualified Code(s): C50.911 - Malignant neoplasm of unspecified site of right female breast Disposition: HOME 01 Certified Medical Emergency: Emergent Condition: Fair - Critical Care Note This patient required my direct & personal management of CC.: No Attestation - Physician/ VLADIMIR Attestation Patient care was provided by Advanced Practice Provider:: No The physician spent face to face time with patient:: Yes Advanced Practice Provider documentation review:: Supervising physician onsite and consulted in the evaluation and care of this patient. The physician did have a face to face encounter with the patient. This chart was documented by the indicated scribe, (Dilcia Salas Scribe) and accurately reflects the services I performed and decisions made by me, Paz Guerra, DO, as attested by the provider's signature.
--- NOTE | 2019-10-05 08:32 | DISCHARGE SUMMARY ---
ADMISSION DATE: 08/30/2019 DISCHARGE DATE: 09/01/2019 A 74-year-old female presented to the ER with shoulder pain for 2 weeks and generalized weakness. The pain is in her shoulder area and radiates to her right chest. She states that she does not when this began. She is awake and drowsy. She has been coughing some when she presented to the ER describing it as a sharp pain, nothing seems to make it feel better. Pain is in her right chest anteriorly. 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 She was a former smoker. She presented to the ER. Chest was clear. She had some tenderness of the right chest wall. Cardiovascular exam: Regular rhythm and rate. She underwent some testing. She had an EKG that was essentially negative. She was given some IV fluids that seemed to make her wake up. She had a CT of the head that was negative, then she had a CT of the chest was very suspicious for breast malignancy with metastasis. There was some concern over polypharmacy. She is multiple sedating medications. We hospitalized her with this suspicious lesion in her breast, although, I could not feel a definite lesion on physical exam. DATABASE AND LABORATORY TESTING: She had blood cultures done and urine culture both of which were negative. Lab: White count was 7590, hematocrit was 31.5, platelet count 215,000 on 2 successive draws. Flu A and B were negative. Coags were normal. Blood gas: pH 7.5, pCO2 35, pO2 68, on room air. Chemistries showed BUN of 38, creatinine 1.7, ratio of 22, suggestive of dehydration, blood sugar was 126, calcium of 10.9 slightly elevated, albumin level was 3.6, globulin was 4, total protein 7.1, lactate level was 1, proBNP was 233, CK 99, troponin 15, alkaline phosphatase was elevated at 250. Urine was negative. We did a mammogram, a breast ultrasound, on 08/30, which showed benign calcifications in the breast, no suspicious calcification, mild asymmetry of the parenchymal distribution. There is increased density posterior in the outer right breast, the area is only partly included on the exam. Ultrasound demonstrates a 13 x 15 x 23 mm hypoechoic solid irregular mass with posterior shadowing suspicious for a right posterior breast cancer, biopsy was recommended. We discussed this case and we elected to give her some medications and let her see Dr. Mosqueda and Dr. Swann to decide her care. cc: Piero Dao MD
== END 2019-09-01 15:39 | disposition home or self-care (01) | DRG 598 ==
LOC: P.ED 21:48 → P.MEDSURG 08-30 04:32
PROVIDERS: ADMIT Internal Medicine; ATTEND Internal Medicine

== ENCOUNTER 2019-10-02 00:19 | Inpatient (IN) ==
[2019-10-02 02:09] LABS: INR 1.12; PROTIME 14.6 Seconds (11.0-16.0)
[2019-10-02 02:10] LABS: PTT 36.1 Seconds (22.3-41.8)
[2019-10-02 02:11] LABS: ALB/GLOB RATIO 1.2; ALBUMIN 3.6 g/dL (3.5-5.0); CALCIUM 9.2 mg/dL (8.8-10.2); CREATININE 1.8 mg/dL (0.5-0.9); MAGNESIUM 2.3 mg/dL (1.5-2.7); POTASSIUM 4.3 mmol/L (3.5-5.1); TOTAL BILIRUBIN 0.3 mg/dL (0.20-1.00); TOTAL PROTEIN 6.7 g/dL (6.3-8.3)
[2019-10-02 02:15] LABS: URINE SOURCE CATH
[2019-10-02 02:21] LABS: BASO# 0.09 X1000 (0.0-0.2); BASO% 1.4 % (0.0-0.8); EOS# 0.01 X1000 (0.0-0.7); EOS% 0.2 % (0.0-10.0); HEMATOCRIT 28.4 % (37.0-47.0); HEMOGLOBIN 8.9 g/dL (12.0-16.0); IMM GRAN% 4.7 % (0.0-0.5); LYMPH# 2.67 X1000 (1.2-3.4); MCH 29.2 PG (27-31); MCHC 31.3 g/dL (33-37); MCV 93.1 FL (81-99); MONO% 9.4 % (1.7-9.3); MPV 10.4 FL (7.4-10.4); NEUT# 2.68 X1000 (1.4-6.5); NEUT% 42.3 % (42.2-75.2); PLT 351 X1000 (130-400); RBC 3.05 XMIL (4.2-5.4); RDW 15.3 % (11.5-14.5); WBC 6.35 X1000 (4.8-10.8)
[2019-10-02 02:22] LABS: BILIRUBIN URINE NEGATIVE (NEGATIVE); BLOOD URINE NEGATIVE (NEGATIVE); COLOR YELLOW; GLUCOSE URINE NEGATIVE (NEGATIVE); KETONE URINE 10 mg/dL (NEGATIVE); LEUKOCYTES URINE NEGATIVE (NEGATIVE); NITRITE URINE NEGATIVE (NEGATIVE); PH URINE 5.5; PROTEIN URINE 30 mg/dL (NEGATIVE); SP GRAVITY URINE 1.024; TURBIDITY URINE CLEAR (CLEAR); UROBILINOGEN URINE NORMAL (NORMAL)
[2019-10-02 02:23] LABS: UR EPITHELIAL CELLS <10 /HPF (<10); URINE BACTERIA NEGATIVE /HPF; URINE RBC <10 /HPF (<10); URINE WBC <10 /HPF (<10)
[2019-10-02] MEDS ORDERED: NS 500 ML IV ONE (02:54)
[2019-10-02] MEDS ORDERED: PROTONIX IV ONE (03:59)
[2019-10-02] MEDS ORDERED: SODIUM CHLORIDE 0.9% INJ ONE ×2 (03:59)
[2019-10-02] MEDS ORDERED: PEPCID IV ONE (03:59)
--- NOTE | 2019-10-02 05:01 | PROVIDER DOCUMENTATION ---
This chart was entered by Daysi Alonso Scribe, acting as scribe for Jacob Sanchez MD. HPI-Abdominal Pain/GI Problem - General Chief Complaint: B/P Problems Stated Complaint: WEAKNESS,GIB Time Seen by Provider: 10/02/19 00:41 Source: patient Allergies/Adverse Reactions: Patient Allergies Allergy/AdvReac Type Severity Reaction Status Date / Time azithromycin Allergy ANAPHYLAXIS Verified 10/02/19 04:50 Penicillins Allergy Unknown Verified 10/02/19 04:50 Home Medications: Home Medication List Medication Instructions Recorded Confirmed Last Taken Type Levothyroxine [Synthroid] 75 mcg PO QAM 06/04/14 10/02/19 09/13/19 History Lorazepam [Ativan] 2 mg PO TID PRN PRN 06/04/14 10/02/19 09/11/19 09:00 History Morphine Ir 15 mg PO Q4-6H PRN PRN 09/12/19 10/02/19 09/13/19 05:00 History Irbesartan 150 mg PO BID 09/29/19 10/02/19 Unknown History Promethazine [Phenergan] 1 tab PO Q6H PRN 09/29/19 10/02/19 Unknown History Aspirin [Aspir-Low] 81 mg PO DAILY 10/02/19 10/02/19 Unknown History Metoclopramide [Reglan] 10 mg PO Q6H PRN PRN 10/02/19 10/02/19 Unknown History Multivit-Min/Iron/Folic Acid/K 1 cap PO DAILY 10/02/19 10/02/19 Unknown History [Multi For Her Softgel] Zinc 50 mg PO DAILY 10/02/19 10/02/19 Unknown History - History of Present Illness-ABD Nature of Presenting Problems: 74 yowf c/o rectal bleed all week w/bright red, black and brown BM. pt was seen in er tuesday. has been taking imodium. 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 pt had recent dx of breast cancer st 4 w/mets to bone. seen by Dr. Swann, pcp is Dr. Dao. port placed rt chest 1 wk ago. Quality of Pain: reports: none Severity in ED: reports: mild Onset/Duration: reports: last week Timing: reports: still present Activities at Onset: reports: none Modifying Factors: improves with: nothing Associated Symptoms: reports: vomiting (w/gerd), other (rectal bleed) Last BM: unsure Dark Stools Present?: reports: black, bright red blood, other (brown) Rectal Pain: reports: none Review of Systems - Adult - REVIEW OF SYSTEMS - ADULT Constitutional: reports: no symptoms reported. denies: chills, fever, fatique Eyes: reports: no symptoms reported Ears, Nose, Mouth & Throat: reports: no symptoms reported Cardiovascular: reports: no symptoms reported Respiratory: reports: no symptoms reported Gastrointestinal: reports: see HPI, frequent heartburn, rectal bleeding, vomiting. denies: hematemesis, constipation, difficulty swallowing Genitourinary: reports: no symptoms reported Musculoskeletal: reports: no symptoms reported Integumentary: reports: no symptoms reported Neurological: reports: no symptoms reported Psychiatric: reports: no symptoms reported Endocrine: reports: no symptoms reported Hematologic/Lymphatic: reports: no symptoms reported Allergic/Immunologic: reports: no symptoms reported All Other Systems: Reviewed and Negative Past History - Adult - PAST MEDICAL HISTORY-ADULT Review of Records: reports: Nursing Assessment Review, Medications Reviewed, Social history reviewed & non-contributory. Major Childhood Illnesses: reports: denies history Cardiovascular: reports: HTN Respiratory: reports: denies history Gastrointestinal: reports: denies history Obstetrical/Gynecological: reports: denies history Genitourinary: reports: denies history Musculoskeletal: reports: chronic pain, fibromyalgia Neurological: reports: Seizures/Epilepsy Psychiatric: reports: anxiety Endocrine/Immune: reports: cancer (melanoma), thyroid disorder Other Conditions: reports: other cancer (recent dx breast cancer w/mets to bone) - PRIOR SURGERIES/PROCEDURES Surgical/Procedure History: reports: hysterectomy, indwelling device (port placed 1 wk ago), back/neck - IMMUNIZATION STATUS Childhood Immunizations: See Nurse Assessment Flu Vaccine: See Nurse Assessment - FAMILY HISTORY Family History: reviewed, not pertinent - SOCIAL HISTORY Smoking: other (former smoker) Substance Use: none/never Physical Exam-General - PHYSICAL EXAM-ADULT Initial Vital Signs Reviewed: Yes - CONSTITUTIONAL General Appearance: appears well, alert, no apparent distress. negative: cachetic, lethargic, slow to respond - EYES Eyes: PERRL/EOMI - HEAD, EARS, NOSE, MOUTH & THROAT HENMT: normocephalic/atraumatic, moist mucous membranes, normal ENT inspection - NECK Neck: non-tender, full range of motion, supple, normal inspection - RESPIRATORY Respiratory: chest non-tender, lungs clear, normal breath sounds, other (port placement rt chest) - CARDIOVASCULAR Cardiovascular: normal peripheral pulses, regular rate, rhythm - GASTROINTESTINAL (ABDOMEN) Abdominal Exam: normal bowel sounds, soft, no organomegaly, no pulsatile mass, tenderness (general abd on palp). negative: non tender, abnormal bowel sounds, distended, guarding - MUSCULOSKELETAL Back Exam: normal inspection Extremity: normal range of motion, non-tender, normal inspection - SKIN Integumentary: normal color, normal turgor, warm/dry - NEUROLOGIC Neurologic: grossly normal, no motor/sensory deficits - PSYCHIATRIC Psych/Mental Status: normal mood/affect, normal thought content, normal thought process, oriented x 3 Progress - PLAN OF CARE/RESULTS Result Diagrams: 10/02/19 01:26 10/02/19 01:26 - REASSESSMENT Reassessment #1 Time Reassessed: 04:33 Status: unchanged (NO ACTIVE BLOODY STOOL AND NO DROP IN BP DURING ER STAY.) - CONSULTS/PCP/HOSPITALIST Notification #1 *Consult/PCP/Hospitalist*: DR MOLINA Time Discussed: 04:00 Consult Disposition: Admit Departure - Departure Date of Disposition Decision: 10/02/19 Time of Disposition Decision: 04:02 DIAGNOSIS: Dehydration, Weakness GI bleeding Qualifiers: GI bleed type/associated pathology: melena Qualified Code(s): K92.1 - Melena Breast cancer Qualifiers: Breast location: unspecified site of breast Estrogen receptor status: unspecified Patient sex: female Laterality: unspecified laterality Qualified Code(s): C50.919 - Malignant neoplasm of unspecified site of unspecified female breast Anemia Qualifiers: Anemia type: unspecified type Qualified Code(s): D64.9 - Anemia, unspecified Disposition: ADMITTED INPATIENT 09 Certified Medical Emergency: Emergent Condition: Stable Referrals and Follow-Ups: Piero Dao MD [Primary Care Provider] - - Critical Care Note This patient required my direct & personal management of CC.: No Attestation - Physician/ VLADIMIR Attestation Patient care was provided by Advanced Practice Provider:: No The physician spent face to face time with patient:: Yes Advanced Practice Provider documentation review:: Supervising physician onsite and consulted in the evaluation and care of this patient. The physician did have a face to face encounter with the patient. This chart was documented by the indicated scribe, (Daysi Alonso Scribe) and accurately reflects the services I performed and decisions made by me, Jacob Sanchez MD, as attested by the provider's signature.
--- NOTE | 2019-10-02 05:38 | Diag Imaging Result Doc PS360 ---
EXAM: CHEST-PORTABLE HISTORY: weak TECHNIQUE: Single view COMPARISON: 08/29/2019 FINDINGS: The lungs are well expanded. The heart is not enlarged. There is a right jugular portacatheter. No pneumothorax. The vessels are not distended. There are no infiltrates. No effusion identified. IMPRESSION: Negative exam. Electronically signed by Tee Joshua 10/02/2019 5:35 AM
--- NOTE | 2019-10-02 06:34 | HISTORY AND PHYSICAL ---
PRIMARY CARE PROVIDER: Piero Dao. CHIEF COMPLAINT: Blood in stool. HISTORY OF PRESENT ILLNESS: Ms. Goldman is a 74-year-old female who has breast cancer with mets to the bone. She sees Dr. Swann outpatient. I believe her last chemo was last Tuesday. She came in tonight with complaint of bright red blood in her stool. Had one this morning. Intermittent right flank pain. I believe she has been diagnosed with rib fractures related to the breast cancer. The patient had a port placed in her right upper chest three weeks ago for the chemotherapy. I believe she was also seen this last Tuesday for similar symptoms. She has also complained of epistaxis. She has other past medical history of hypertension, chronic pain, fibromyalgia, melanoma, thyroid disorder and anxiety. Her hemoglobin and hematocrit were fairly stable if not better than when she arrived on 09/29/2019, but she will be admitted for GI consultation and further evaluation. PAST MEDICAL HISTORY: See HPI. PREVIOUS SURGICAL HISTORY: Neck and back surgery, recent Port-A-Cath placement, multiple melanomas taken off of her body in the past. SOCIAL HISTORY: She is an ex-smoker. No tobacco. No alcohol. No illicit drugs. FAMILY HISTORY: Positive for cancer and coronary artery disease in first degree relatives. ALLERGIES: Azithromycin and penicillin. HOME MEDICATIONS: Aspirin 81 mg p.o. daily, irbesartan 150 mg p.o. b.i.d., levothyroxine 75 mcg p.o. q.a.m., lorazepam 2 mg p.o. t.i.d. p.r.n., Reglan 10 mg p.o. q.6 p.r.n., morphine IR 15 mg p.o. q 4 to 6 p.r.n., multivitamin with folic acid one p.o. daily, promethazine 25 mg q.6 p.r.n. and zinc 50 mg p.o. daily. REVIEW OF SYSTEMS: Fourteen-point review of systems conducted with the patient. She complained of nausea and vomiting, right flank pain, bloody stool and epistaxis. She also had complaints of some melena in her stool. She did not have any complaint of hematemesis but she did have hematochezia. All other systems reviewed and found to be negative. PHYSICAL EXAMINATION: VITAL SIGNS: Temperature 98.2, pulse 88, respirations 20, blood pressure 139/73, oxygen saturation 96% on room air. GENERAL: Pleasant 74-year-old female lying in the ER stretcher. Alert and oriented times 3. Answers all questions appropriately. HEENT: Head is atraumatic, normocephalic. Pupils equal, round and reactive to light. Extraocular eye movement is intact. Sclerae are anicteric. Conjunctiva is pale. Oral mucosa is dry. NECK: Supple. No JVD. No thyromegaly. Trachea is midline. No cervical lymphadenopathy. CARDIAC: S1, S2 appreciated. No murmurs, gallops, rubs. LUNGS: Clear to auscultation bilaterally. No rhonchi, wheezes, rales. Symmetric rise and fall with respirations. ABDOMEN: Soft, nondistended, diffusely tender to touch. Bowel sounds hypoactive all 4 quadrants. No pulsatile mass. No organomegaly. EXTREMITIES: No clubbing, cyanosis or edema. One-plus pedal pulses bilaterally. GENITOURINARY: No bladder distention. Patient voids. Otherwise deferred. NEUROLOGICAL: Alert and oriented times 3. No focal motor deficits. Otherwise nonfocal examination. DIAGNOSTIC DATA: Chest x-ray shows Port-A-Cath appears to be in place. No infiltrates, effusions or edema. LABORATORY DATA: WBC 6.35. Hemoglobin 8.9. Hematocrit 28.4. Platelet count 351. Coags within normal limits. Sodium 141. Potassium 4.3. Chloride 103. Carbon dioxide 22. BUN 25. Creatinine 1.8. Glucose 137. Urine unremarkable. ASSESSMENT: 1. GI bleed. 2. Epistaxis. 3. Breast cancer with bone mets. 4. Hypertension, currently normotensive. 5. Anemia of acute blood loss as well as likely chronic inflammation. PLAN: Admit patient to the medical floor. Consult Dr. Swann and Dr. Yin to see the patient. Hold NPO. Protonix 40 mg IV q.12.h. Will hold antihypertensives and other oral medications at this time. Normal saline at 70 mL an hour and morphine 2 mg IV q.3.h. Trend hemoglobin and hematocrit. Continue to monitor chemistry panel. Further recommendations per patient clinical course. Dictated by ADELE Irwin for Aram Garcia MD cc: ADELE Irwin MD Piero Feliberto, MD Independent bedside exam and history done with [facility]. Discussed and reviewed the above plan of care with [facility]. RODDY
--- NOTE | 2019-10-02 07:34 | EKG Report ---
Test Performed on : 10/02/2019 06:07:43 AM Test Reason : weak Blood Pressure : / mmHG Vent. Rate : 083 BPM Atrial Rate : 083 BPM P-R Int : 138 ms QRS Dur : 082 ms QT Int : 374 ms P-R-T Axes : 051 050 042 degrees QTc Int : 439 ms Normal sinus rhythm. Normal ECG When compared with ECG of 29-AUG-2019 21:56, (Unconfirmed) No significant change was found Unconfirmed Result
[2019-10-02] MEDS ORDERED: ZOFRAN IV PRN (08:04)
[2019-10-02] MEDS ORDERED: SODIUM CHLORIDE 0.9% INJ SCH (08:04)
[2019-10-02 09:09] LABS: HEMATOCRIT 26.9 % (37.0-47.0); HEMOGLOBIN 8.4 g/dL (12.0-16.0)
[2019-10-02] MEDS: MORPHINE IV PRN ×5 (09:50→22:19)
[2019-10-02] MEDS: NS 1,000 ML IV SCH ×3 (09:51→18:34)
[2019-10-02] MEDS ORDERED: GOLYTELY PO ONE (14:00)
--- NOTE | 2019-10-02 14:04 | HEMO/ONC CONSULTATION ---
DATE: 10/02/2019 REASON FOR CONSULTATION: This is a known patient of ours for the treatment of breast cancer with bone metastasis. HISTORY OF PRESENT ILLNESS: Ms Goldman is a known patient of ours for the treatment of breast cancer with bone metastasis, who came to the ER yesterday with a complaint of bright red blood in her stool and right-sided rib pain. She denies any nausea, vomiting, or diarrhea. The patient has metastatic invasive mammary carcinoma with lytic bone lesions. She was recently started on Taxotere, Perjeta, and Herceptin. She tolerated her 1st treatment very well. Her 1st cycle was on 09/18/2019. Her 2nd dose was on 09/25/2019. The patient is also on Xgeva, she had her 1st dose on 09/13/2019. PAST MEDICAL HISTORY: Hypertension, chronic pain, fibromyalgia, melanoma, thyroid disorder, and anxiety. PAST SURGICAL HISTORY: Neck and back surgery, recent Port-A-Cath placement, multiple melanomas removed. SOCIAL HISTORY: She is a former smoker. At this time denies tobacco, alcohol, or illicit drugs. ALLERGIES: Azithromycin and penicillin. HOME MEDICATIONS: Aspirin, irbesartan, levothyroxine, lorazepam, Reglan, morphine, multivitamin with folic acid, promethazine, and zinc. REVIEW OF SYSTEMS: The patient complains of right flank pain, nausea, vomiting, bloody stool, and epistaxis. All other review of systems are negative. PHYSICAL EXAMINATION: General: The patient is in no acute distress. HEENT: Sclerae is anicteric. PERRLA. Oral mucosa is normal. Cardiovascular: Normal S1, S2. Heart rate and rhythm regular. Respiratory: Lung sounds clear to auscultation. Normal respiratory effort. Abdomen: Soft, nontender, nondistended. Extremities: No lower extremity edema noted. Vital Signs: Temperature 98.3 degrees, pulse rate 80, respiratory rate 14, blood pressure 114/62, O2 saturation 98% on room air. She is in 5/10 abdominal pain. LABORATORY DATA: WBC 6.35, hemoglobin 8.4, hematocrit 26.9, platelet count 351,000. Sodium 141, potassium 4.3, creatinine 1.8, alkaline phosphatase 171. ASSESSMENT AND PLAN: 1. Gastrointestinal bleed. Consult Dr. Yin for further evaluation. Continue medical management. The patient had been placed on a baby aspirin from our clinic for port prophylaxis. 2. Epistaxis. Continue to monitor. 3. Breast cancer with bone metastasis. The patient was recently started on treatment. See history of present illness. 4. Anemia of acute blood loss as well as anemia of chronic disease. We will continue to monitor the patient's numbers. She will need blood transfusions for a hemoglobin of less than 7. We will continue to monitor. Dictated by ADELE Brown for Marco A Swann MD As abobe. Recently diagnosed metastatic breast cancer. Now admitted with GI bleed. Consult GI for scopes.. Will follow with you. Marco A Swann MD cc: Marco A Swann MD MTDD
--- NOTE | 2019-10-02 14:16 | PROGRESS NOTE ---
DATE: 10/02/2019 SUBJECTIVE: Patient with no further overt bleeding. Initial description given to the providers who saw her on presentation was of red blood per rectum. Patient now saying that while she had some red blood, a large part was dark black. Clarified with the patient, and she did confirm that this was jet black melanotic stool rather than just dark blood. She does also endorse some mild epigastric discomfort. No other new complaints. No acute events. REVIEW OF SYSTEMS: A 12-point review of systems is negative, except as per interval history. LABORATORY DATA: WBC 6.3, hemoglobin 8.9 (repeat 8.4), hematocrit 26.9, platelets 351,000. INR 1.12. Sodium 141, potassium 4.3, bicarb 22, BUN 25, creatinine 1.8, glucose 137. Bilirubin 0.3, AST 19, ALT 10, alkaline phosphatase 171. Troponin 16. Lactate 0.8, free T4 of 0.45. OBJECTIVE: Vital Signs: T-max 98.3 degrees, pulse 80, respirations 14, blood pressure 114/62, O2 sats 98%. General: No acute distress. Chronically ill appearing. HEENT: Normocephalic, atraumatic. Moist mucous membranes. No cervical adenopathy. Cardiovascular: Regular rate and rhythm. No murmurs noted. Pulmonary: Clear to auscultation bilaterally. No wheezing, rales, or rhonchi. Abdomen: Soft, nondistended. Minimal diffuse tenderness without rebound or guarding. Bowel sounds slightly decreased, but present. Extremities: Peripheral pulses intact. No clubbing or cyanosis. Neurologic: Cranial nerves are grossly intact. Mild global weakness, but no focal deficits. Psychiatric: Normal mood and affect. Cooperative. ASSESSMENT AND PLAN: 1. Gastrointestinal bleed, melena. Here with similar complaints a few days ago. Blood counts have actually improved a little bit since then, although repeat this afternoon trending down very slightly. Will continue to monitor blood counts. Gastroenterology consulted. Will see what they recommend. Continue twice daily Protonix, and monitor. The patient states that she thinks it has been over 10 years since her last colonoscopy. 2. Epistaxis, resolved. 3. Likely acute kidney injury on possible chronic kidney disease. Patient with elevated creatinine and BUN. Exact baseline not entirely certain, but has had recent creatinine as low as 1.1. Will give gentle fluids and monitor. 4. History of hypertension. Blood pressure essentially normotensive here off of her home medications. Continue holding for now in the setting of acute kidney injury and likely gastrointestinal bleed, but if it becomes further elevated, will likely restart home medications. 5. Breast cancer with metastasis to bone. Known patient with recent chemotherapy in the last week, which could also be contributing to her low blood counts. 6. Low T4. Uncertain of its significance. Will recheck both TSH and free T4 in the morning to further assess.
--- NOTE | 2019-10-02 14:34 | GASTROENTEROLOGY CONSULTATION ---
DATE: 10/02/2019 REASON FOR CONSULT: GI bleed. HISTORY OF PRESENT ILLNESS: Ms. Goldman is a 74-year-old, female with a history of breast cancer with metastasis to the bone. The patient is seeing Dr. Swann and she had started her chemotherapy a month back. She said that she has 2 weeks of chemotherapy and 1 week off for the labs. She came into the hospital last night with complaints of bright red blood in the stools. She said that she has been having diarrhea from Tuesday onwards, heartburn, and she has lost a few pounds. Tuesday, she said that she had rectal bleeding and nasal bleeding. Yesterday, she complained of nausea and vomiting in the night. She has denied any fever or chills. She has a port placed in her right upper chest. The patient does have a history of hypertension, chronic pain, fibromyalgia, melanoma, thyroid and anxiety problems. The patient's hemoglobin and hematocrit were 8.9 and 28.4. Now, it is 8.4 and 26.9. PAST MEDICAL HISTORY: Hypertension, chronic back pain, chronic pain, fibromyalgia, melanoma, hypothyroid, anxiety, breast cancer, rib fracture. PAST SURGICAL HISTORY: Neck surgery, back surgery, recent Port-A-Cath placement, multiple melanomas taken off, hysterectomy, and bladder surgery. ALLERGIES: The patient is allergic to azithromycin and penicillin. FAMILY HISTORY: Positive for cancer and coronary artery disease. SOCIAL HISTORY: She used to smoke in the past. She has denied any tobacco, alcohol, or illicit drug use. HOME MEDICATIONS: Ativan 2 mg 3 times a day as needed, Synthroid 75 mcg p.o. in the a.m., morphine IR 15 mg p.o. every 4 to 6 hours as needed, irbesartan 150 mg p.o. twice a day, Phenergan 25 mg 1 tablet every 6 hours as needed, aspirin 81 mg p.o. daily, Reglan 10 mg p.o. every 6 hours as needed, multivitamin 1 tablet p.o. daily, and zinc 50 mg p.o. daily. REVIEW OF SYSTEMS: As per HPI. Otherwise, 12 point review of systems is negative. PHYSICAL EXAMINATION: Vital Signs: Temperature 98.3 degrees, pulse 80, respirations 14, blood pressure 114/62, oxygen saturation 98% on room air. The patient's weight is 149 pounds. BMI is 24.8 kg/m2. General: She is alert, oriented x3. Answering questions appropriately. No acute distress. HEENT: Pale conjunctivae. No icterus. PERRL. Neck: Supple. Lungs: Clear to auscultation. Cardiovascular: Regular rate and rhythm. Abdomen: Soft, nontender, nondistended. Active bowel sounds heard in all 4 quadrants. Extremities: No clubbing, no cyanosis, no edema. Pedal pulses 2+ present bilaterally. Neurologic: She is alert and oriented x3. Nonfocal. Cranial nerves 2-12 grossly intact. LABS: WBCs 6.35, RBCs 3.05, hemoglobin is 8.4, hematocrit is 26.9, platelet count is 351,000. PT is 14.6, INR is 1.12. Sodium 141, potassium 4.3, chloride 103, carbon dioxide 22, anion gap 16, BUN 25, creatinine 1.8, glucose 137, calcium 9.2, magnesium 2.3. Total bilirubin 0.30, AST 19,\ ALT 10, alkaline phosphatase 171, albumin is 3.6, plasma lactate is 0.8. Free T4 is 0.45. Urinalysis has shown protein of 30, ketones of 10. Toxicology report has been negative. IMAGING: The patient's chest x-ray has shown a negative exam. IMPRESSION AND PLAN: - Gastrointestinal bleed. - Acute blood loss anemia - Nausea and vomiting - Acute kidney injury - Breast cancer - Hypertension. PLAN: Ms. Goldman is a 74-year-old, female with a history of breast cancer with bone metastasis and currently receiving chemotherapy. GI has been consulted for her GI bleed. We plan to do an EGD and a colonoscopy tomorrow to rule out the cause of her bleeding. The patient is currently on IV fluids with normal saline at 125 mL. She is receiving PPIs twice a day. We have discussed the risks, benefits, and alternatives of the procedure to the patient and the family member. Further plan of care will be based on the EGD and colonoscopy findings. We will continue to monitor patient's hemoglobin and hematocrit. This plan was discussed with Dr. Engel. Thank you for your consult. Please call us for any further questions or concerns. Dictated by ADELE Truong for Piero Engel MD Physician Attestation I have seen and examined the patient. I have discussed and reviewed the note by Imelda ANGULO and agree with findings and plan as documented. In brief, Ms. Goldman is a 74 year old woman who presents with melena and hematochezia with acute blood loss anemia. Will plan EGD and colonoscopy MTDD
[2019-10-02 15:05] LABS: HEMATOCRIT 28.7 % (37.0-47.0); HEMOGLOBIN 8.8 g/dL (12.0-16.0)
[2019-10-02] MEDS: PROTONIX IV SCH (15:30)
[2019-10-02] MEDS: ATIVAN IV PRN ×2 (16:05→22:18)
[2019-10-02 20:45] LABS: HEMATOCRIT 25.3 % (37.0-47.0); HEMOGLOBIN 7.8 g/dL (12.0-16.0)
[2019-10-03] MEDS: MORPHINE IV PRN ×2 (03:46→13:15)
[2019-10-03] MEDS: PROTONIX IV SCH (04:35)
[2019-10-03 07:44] LABS: HEMATOCRIT 27.3 % (37.0-47.0); HEMOGLOBIN 8.6 g/dL (12.0-16.0)
[2019-10-03] MEDS: ATIVAN IV PRN (07:50)
[2019-10-03] MEDS ORDERED: DIPRIVAN 1% ONE (07:57)
[2019-10-03] MEDS ORDERED: FENTANYL ONE (07:57)
[2019-10-03 08:20] LABS: CALCIUM 7.6 mg/dL (8.8-10.2); CREATININE 1.3 mg/dL (0.5-0.9)
[2019-10-03] MEDS ORDERED: NEO-SYNEPHRINE ONE (08:23)
[2019-10-03] MEDS ORDERED: SODIUM CHLORIDE 0.9% 10 ML ONE (08:23)
[2019-10-03 08:26] LABS: FREE T4 0.38 ng/dL (0.93-1.70); TSH 18.71 uIUmL (0.27-4.20)
--- NOTE | 2019-10-03 08:44 | ENDOSCOPY OPERATIVE NOTE ---
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 PROCEDURE PERFORMED: EGD w/ biopsy MEDICATIONS: Per Anesthesia ESTIMATED BLOOD LOSS: None CONSENT: The patient understands the risks and benefits of the procedure and understands that these r isks include, but are not limited to: sedation, allergic reaction, infection, perforation and/or bleeding. Alternative means of evaluation and treatment include, among others: physical exam, x-rays, and/or surgical intervention. The patient elects to proceed with this endoscopic procedure. DESCRIPTION OF PROCEDURE: During pre-op preparation period all mechanical and medical equipment was c hecked for proper function. Hand hygiene and appropriate measures for infection prevention was taken. After the risks, benefits and alternatives of the procedure were thoroughly explained, Informed consent was verified, confirmed and timeout was successfully executed by the treatment team. The patient was anesthetized with topical anesthesia and the EN14-l25 ([id number]) endoscope was introduced through the mouth and advanced to the second portion of the duoden um. Retroflexion was performed in the stomach and revealed no abnormalities. The gastroscope was then slowly withdraw n and removed. The patient's toleration of the procedure was excellent. ESOPHAGUS: The mucosa of the esophagus appeared normal. The z-line was noted at 35cm from the incis ors. The z-line appeared normal. STOMACH: Mild gastritis (inflammation) was found in the gastric antrum. Multiple non-bleeding, shal low, linear and punctate, clean-based ulcers ranging between 3-7mm in size were found in the gastric antrum. Biopsie s were taken to rule out H pylori. No active bleeding. DUODENUM: Multiple non-bleeding, linear and clean-based ulcers ranging between 3-7mm in size were fou nd in the 2nd part of the duodenum along folds. No active bleeding. ADVERSE EVENTS: There were no complications. IMPRESSIONS: ESOPHAGUS: The mucosa of the esophagus appeared normal. The z-line was noted at 35cm from the incis ors. The z-line appeared normal. STOMACH: Mild gastritis (inflammation) was found in the gastric antrum. Multiple non-bleeding, shal low, linear and punctate, clean-based ulcers ranging between 3-7mm in size were found in the gastric antrum. Biopsie s were taken to rule out H pylori. No active bleeding. DUODENUM: Multiple non-bleeding, linear and clean-based ulcers ranging between 3-7mm in size were fou nd in the 2nd part of the duodenum along folds. RECOMMENDATIONS: 1. Await biopsy results 2. Transition IV PPI to PO pantoprazole 40mg PO BID and continue for 3 months 3. Avoid NSAIDs and aspirin 4. Continue to colonoscopy procedure REPEAT EXAM: Return in 3 months for EGD. Piero Engel MD eSigned: Piero Engel MD 10/03/2019 8:43 AM CC: CPT CODES: 08710 Upper gastrointestinal endoscopy including esophagus, stomach, and either the du odenum and/or jejunum as appropriate; with biopsy, single or multiple ICD CODES: 285.9 anemia,unspecified 578.1 Blood in stool The ICD and CPT codes recommended by this software are interpretations from the data that the [facility] staff has captured with the software. The verification of the translation of this report to the ICD and CPT co kate and modifiers is the sole responsibility of the health care institution and practicing physician where this report was generated. [employer] will not be held responsible for the validity of the ICD and CPT codes i ncluded on this report. [facility] assumes no liability for data contained or not contained herein. CPT is a registered tra demark of the [employer]. PATIENT NAME: Abiola Goldman MR#: [id number]
--- NOTE | 2019-10-03 08:48 | ENDOSCOPY OPERATIVE NOTE ---
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 PROCEDURE PERFORMED: Colonoscopy, diagnostic MEDICATIONS: Per Anesthesia PREP TYPE: GoLytely
[2019-10-03 11:08] VITALS: BP 108/60
--- NOTE | 2019-10-03 13:23 | HEMO/ONC PROGRESS NOTE ---
DATE: 10/03/2019 SUBJECTIVE: The patient is awake and alert, status post EGD and colonoscopy this morning. The procedure was successful. The patient denies any pain. She denies any current bleeding. The patient has no complaints. OBJECTIVE: Vital Signs: Temperature 97.9 degrees, pulse rate 82, respiratory rate 16, blood pressure 108/60, O2 saturation 100% on room air. She is in 0/10 pain. General: The patient is in no acute distress. HEENT: Conjunctivae pale. Sclerae anicteric. PERRLA. Oral mucosa normal. Cardiovascular: Normal S1, S2. Heart rate and rhythm regular. Respiratory: Lung sounds are clear to auscultation. Normal respiratory effort. Extremities: No lower extremity edema noted. Neurological: Alert and oriented x3. No focal motor deficits. LABORATORY DATA: Hemoglobin 8.6, hematocrit 27.3. Creatinine 1.3, calcium 7.6. TSH 18.71, free T4 of 0.38. ASSESSMENT AND PLAN: 1. Gastrointestinal bleed. The patient had an esophagogastroduodenoscopy and colonoscopy this morning. Nonbleeding ulcers were noted in the patient's stomach. It is believed to be the source of previous bleeding. Colonoscopy was unremarkable. In regards to bleeding, we will review the patient's iron profile. She will require a blood transfusion for hemoglobin of less than 7. 2. Breast cancer with bone metastasis. The patient was recently started on her treatment with Herceptin, Perjeta, and Taxotere. Last dose was 09/25/2019. Her dosing schedule is 2 weeks on, 1 week off. 3. Anemia of acute blood loss, as well as anemia of chronic disease. We will continue to monitor the patient's number. The patient is also on Procrit in clinic. We will continue to follow peripherally. Dictated by ADELE Brown for Marco A Swann MD cc: Marco A Swann MD [facility]
[2019-10-03] MEDS ORDERED: PROTONIX PO SCH (21:00)
[2019-10-04] MEDS ORDERED: SYNTHROID PO SCH (07:00)
--- NOTE | 2019-10-04 08:57 | DISCHARGE SUMMARY ---
ADMISSION DATE: 10/02/2019 DISCHARGE DATE: 10/03/2019 DISCHARGE DIAGNOSES: 1. Gastrointestinal bleed. 2. Acute blood loss anemia and anemia of chronic disease. 3. Breast cancer with bone metastasis. 4. Hypertension. 5. Acute kidney injury on chronic kidney disease 3. 6. Hypothyroidism. 7. Peptic ulcer disease. CONSULTS: 1. Gastrointestinal, Dr. Engel. 2. Hematology/Oncology, Dr. Swann. HOSPITAL COURSE: The patient was admitted with complaints of bright red blood and melena per rectum. She had somewhat similar complaints previously, but came back as they had recurred in larger volume. Her initial hemoglobin was really not that bad. It was actually increased somewhat from a few days prior. It did trend down somewhat initially from 8.9, down to 7.8, but then came back up spontaneously to 8.6. After admission, she had no further clear signs of bleeding. Endoscopy was performed which did show numerous ulcerations in the stomach and duodenum. Biopsies were obtained. None of them were bleeding or had exposed vessels, however. A colonoscopy was also performed that showed uncomplicated not bleeding diverticulosis. On initial evaluation, the patient was likely mildly dehydrated. She had an elevated creatinine 1.8, BUN of 25. With IV fluids, this improved rapidly to a creatinine 1.3 and BUN of 18, which were essentially her baseline. Incidentally she was also noted to be a little bit hypothyroid. TSH was 18.7, free T4 of 0.38, so her home Synthroid dose was increased from 75 to 100. As the patient had no further obvious signs of bleeding and her hemoglobin and hematocrit were improved or improving, it was decided she was stable to discharge home on b.i.d. PPI, to follow up with GI in a few days to follow up on biopsies. Also to follow up with her PCP and oncologist. The patient never had any dyspnea, chest pain, or dizziness. Her blood pressure and breast cancer were stable during this admission. The patient was instructed to stay off aspirin for the immediate future given her fairly extensive peptic ulcer disease. DISCHARGE VITAL SIGNS: Temperature 97.9 degrees, pulse 82, respirations 16, blood pressure 108/60, and O2 saturation 100% on room air. DISCHARGE MEDICATIONS: Ativan as previously prescribed, morphine IR as previously prescribed, multivitamin including iron and folate daily, Phenergan as previously prescribed, Reglan 10 mg as previously prescribed, zinc daily, Protonix 40 mg p.o. b.i.d., Synthroid 100 mcg p.o. daily separate from other medications with water. TIME SPENT: Greater than 30 minutes spent arranging discharge and counseling.
== END 2019-10-03 18:39 | disposition home health service (06) | DRG 378 ==
LOC: ED 00:19 → 4N 05:17 → SUATTDRO 05:17
PROVIDERS: ATTEND Internal Medicine

== ENCOUNTER 2019-10-09 12:40 | Inpatient (IN) ==
[2019-10-09] MEDS ORDERED: MAXIPIME 1 GM in NS 50 ML IV ONE (13:02)
[2019-10-09] MEDS ORDERED: NS 1,000 ML IV ONE ×2 (13:02)
--- NOTE | 2019-10-09 13:13 | EKG Report ---
Test Performed on : 10/09/2019 1:01:34 PM Test Reason : short of breath Blood Pressure : / mmHG Vent. Rate : 097 BPM Atrial Rate : 097 BPM P-R Int : 134 ms QRS Dur : 086 ms QT Int : 336 ms P-R-T Axes : 053 043 054 degrees QTc Int : 426 ms Normal sinus rhythm. Low voltage QRS Borderline ECG When compared with ECG of 02-OCT-2019 06:07, (Unconfirmed) No significant change was found Unconfirmed Result
--- NOTE | 2019-10-09 13:38 | Diag Imaging Result Doc PS360 ---
EXAM: CHEST-1 VIEW HISTORY: sob TECHNIQUE: Single view COMPARISON: 10/02/2019 FINDINGS: The lungs are well expanded. The heart is not enlarged. No change in the right jugular portacatheter. The vessels are not distended. There are tiny basilar infiltrates. No effusion identified. IMPRESSION: There are tiny basilar infiltrates. Electronically signed by Tee Joshua 10/09/2019 1:36 PM
[2019-10-09 14:10] LABS: INR 1.07; PROTIME 14.1 Seconds (11.0-16.0)
[2019-10-09 14:11] LABS: PTT 39.7 Seconds (22.3-41.8)
[2019-10-09 14:19] LABS: ALB/GLOB RATIO 1.2; ALBUMIN 3.3 g/dL (3.5-5.0); CALCIUM 7.5 mg/dL (8.8-10.2); CREATININE 2.6 mg/dL (0.5-0.9); POTASSIUM 4.7 mmol/L (3.5-5.1); TOTAL BILIRUBIN 0.22 mg/dL (0.20-1.00)
[2019-10-09 15:02] LABS: BASO# 0.04 X1000 (0.0-0.2); BASO% 0.4 % (0.0-0.8); EOS# 0.01 X1000 (0.0-0.7); EOS% 0.1 % (0.0-10.0); HEMATOCRIT 23.5 % (37.0-47.0); HEMOGLOBIN 7.2 g/dL (12.0-16.0); IMM GRAN% 2.2 % (0.0-0.5); LYMPH# 2.03 X1000 (1.2-3.4); LYMPH% 22.4 % (20.5-51.1); MCH 29.8 PG (27-31); MCHC 30.6 g/dL (33-37); MCV 97.1 FL (81-99); MONO# 0.64 X1000 (0.11-0.59); MONO% 7.1 % (1.7-9.3); MPV 9.9 FL (7.4-10.4); NEUT# 6.13 X1000 (1.4-6.5); NEUT% 67.8 % (42.2-75.2); PLT 357 X1000 (130-400); RBC 2.42 XMIL (4.2-5.4); RDW 18.4 % (11.5-14.5); WBC 9.05 X1000 (4.8-10.8)
[2019-10-09 15:29] LABS: CK INDEX 0.8 (0.0-2.5); CK-MB 2.54 ng/mL (0.0-5.0)
[2019-10-09 16:14] LABS: URINE SOURCE CLEAN CATCH
[2019-10-09 16:48] LABS: BILIRUBIN URINE NEGATIVE (NEGATIVE); BLOOD URINE NEGATIVE (NEGATIVE); COLOR YELLOW; GLUCOSE URINE NEGATIVE (NEGATIVE); KETONE URINE NEGATIVE (NEGATIVE); LEUKOCYTES URINE NEGATIVE (NEGATIVE); NITRITE URINE NEGATIVE (NEGATIVE); PROTEIN URINE TRACE mg/dL (NEGATIVE); SP GRAVITY URINE 1.017; TURBIDITY URINE CLEAR (CLEAR); UROBILINOGEN URINE NORMAL (NORMAL)
[2019-10-09 16:49] LABS: UR EPITHELIAL CELLS <10 /HPF (<10); URINE BACTERIA NEGATIVE /HPF; URINE RBC <10 /HPF (<10); URINE WBC <10 /HPF (<10)
[2019-10-09] MEDS ORDERED: NS 500 ML IV ONE (17:11)
[2019-10-09] MEDS ORDERED: LASIX IV ONE (17:11)
[2019-10-09] MEDS ORDERED: TYLENOL PO ONE (17:11)
[2019-10-09] MEDS ORDERED: BENADRYL IV ONE (17:11)
[2019-10-09] MEDS ORDERED: PROTONIX 80 MG in NS 80 ML IV SCH (17:15)
--- NOTE | 2019-10-09 17:34 | PROVIDER DOCUMENTATION ---
This chart was entered by Abigail Mosqueda Scribe, acting as scribe for Jordi Fernandez MD. HPI-Musculoskeletal Pain/Inj - GENERAL Chief Complaint: SEPSIS ALERT Stated Complaint: DR ONTIVEROS REFERRED TO ER Time Seen by Provider: 10/09/19 12:56 Source: patient, family - HX OF PRESENT ILLNESS-MUSKULOSKELTAL Nature of Presenting Problem: 74 yowf presents to the ed with c/o back pain. pt is current cancer pt on chemo with last tx 1 week prior. pt has breast cancer mets to bone and back exam looks normal on exam. pt is tender lumbar region with decreased rom. pt took morphine for pain earlier this am for cancer pain. Quality of Pain: reports: aching Severity in ED: moderate Onset/Duration: this morning Timing: still present Modifying Factors: worse with: movement Any recent injury?: No Locality of Occurance: Home Similar Symptoms Previously?: Yes Recently seen or treated by another doctor?: Yes (oncology) Review of Systems - Adult - REVIEW OF SYSTEMS - ADULT Constitutional: denies: chills, fever Eyes: reports: no symptoms reported Ears, Nose, Mouth & Throat: reports: no symptoms reported Cardiovascular: denies: chest pain, palpitations Respiratory: reports: no symptoms reported Gastrointestinal: reports: rectal bleeding (Seen by Dr. Engel last week, had Upper and Lower endoscopy, and was determined to have hemorrhagic gastritis d/t aspirin use, which she has discontinued.). denies: diarrhea, nausea, vomiting Genitourinary: reports: no symptoms reported Musculoskeletal: reports: see HPI, back pain. denies: neck pain Integumentary: reports: no symptoms reported Neurological: denies: dizziness/vertigo, headache/migraines Psychiatric: reports: no symptoms reported Endocrine: reports: no symptoms reported Hematologic/Lymphatic: reports: no symptoms reported Allergic/Immunologic: reports: no symptoms reported All Other Systems: Reviewed and Negative Past History - Adult - PAST MEDICAL HISTORY-ADULT Review of Records: reports: Old Records Reviewed, Nursing Assessment Review, Medications Reviewed, Social history reviewed & non-contributory. Major Childhood Illnesses: reports: denies history Cardiovascular: reports: HTN Respiratory: reports: denies history Gastrointestinal: reports: denies history Obstetrical/Gynecological: reports: denies history Genitourinary: reports: denies history Musculoskeletal: reports: chronic pain, fibromyalgia Neurological: reports: denies history Psychiatric: reports: anxiety Endocrine/Immune: reports: cancer (melanoma), thyroid disorder Other Conditions: reports: denies history Additional History: breast cancer with mets to bone - PRIOR SURGERIES/PROCEDURES Surgical/Procedure History: reports: hysterectomy, back/neck - IMMUNIZATION STATUS Childhood Immunizations: See Nurse Assessment Flu Vaccine: See Nurse Assessment - FAMILY HISTORY Family History: reviewed, not pertinent - SOCIAL HISTORY Smoking: denies Alcohol Use Frequency: never Living Situation: family Physical Exam-Injury Related - Physical Exam-Injury Related Initial Vital Signs Reviewed: Yes (BP-84/53) General Appearance: appears well, alert, mild distress Eyes: PERRL/EOMI, pink conjunctivae Head, Ears, Nose, Mouth & Throat: moist mucous membranes Neck: non-tender, full range of motion, supple, normal inspection Respiratory: chest non-tender, lungs clear, normal breath sounds Cardiovascular: normal peripheral pulses, regular rate, rhythm Chest/Breast: other (port rt upper chest wall) Abdominal Exam: normal bowel sounds, soft, tenderness (lower abd mild) Female Genitalia/Pelvic Exam: deferred Rectal Exam: normal exam (except small external hemorrhoid (done by MSIII José)) , normal rectal tone, hemorrhoids. negative: blood streaked stool Hemoccult Exam: other (sent) Lymphatic: no adenopathy Back Exam: decreased range of motion, other (lower lumbar pain). negative: ecchymosis Extremity: normal range of motion, non-tender, normal gait, normal inspection Integumentary: warm/dry, pallor Neurologic: grossly normal Psych/Mental Status: normal mood/affect, normal thought content, normal thought process, oriented x 3 Progress - PLAN OF CARE/RESULTS Progress/Plan/Lab Results: Vital Signs - 8 hr 10/09/19 12:48 Temperature 98.6 F Pulse Rate 96 H Respiratory Rate 20 Blood Pressure 84/53 O2 Sat by Pulse Oximetry 95 10/09/19 17:22 Stool Occult Blood (BRENNEN) - Final Stool 10/09/19 13:53 Influenza Screen - Final Nasopharyngeal Laboratory Results - last 24 hr 10/09/19 10/09/19 10/09/19 13:25 13:25 13:25 WBC RBC Hgb Hct MCV MCH MCHC RDW Std Deviation Plt Count MPV Immature Gran % (Auto) Neut % (Auto) Lymph % (Auto) Isabella % (Auto) Eos % (Auto) Baso % (Auto) Immature Gran # (Auto) Neut # (Auto) Lymph # (Auto) Isabella # (Auto) Eos # (Auto) Baso # (Auto) PT INR PTT (Actin FS) Sodium 141 Potassium 4.7 Chloride 109 H Carbon Dioxide 20 L Anion Gap 12 BUN 42 H Creatinine 2.6 H Estimated GFR/1.73 m2 18 BUN/Creatinine Ratio 16 Glucose 110 H Calculated Osmolality 292 Calcium 7.5 L Total Bilirubin 0.22 AST 19 ALT 11 Alkaline Phosphatase 168 H Creatine Kinase 325 H Creatine Kinase Index 0.8 CK-MB (CK-2) 2.54 Troponin T High Sens 22 H [id number] Pept Total Protein 6.0 L Albumin 3.3 L Globulin 2.7 Albumin/Globulin Ratio 1.2 Plasma Lactate 0.7 Urine Source Urine Color Urine Turbidity Urine pH Ur Specific [place] Urine Protein Ur Glucose (Stick) Ur Ketones (Stick) Urine Blood Urine Nitrite Urine Bilirubin Urobilinogen Dipstick Urine Leukocytes Urine WBC (Auto) Urine RBC (Auto) U Epithel Cells (Auto) Urine Bacteria (Auto) 10/09/19 10/09/19 10/09/19 13:25 13:25 13:25 WBC 9.05 RBC 2.42 L Hgb 7.2 L Hct 23.5 L MCV 97.1 MCH 29.8 MCHC 30.6 L RDW Std Deviation 18.4 H Plt Count 357 MPV 9.9 Immature Gran % (Auto) 2.2 H Neut % (Auto) 67.8 Lymph % (Auto) 22.4 Isabella % (Auto) 7.1 Eos % (Auto) 0.1 Baso % (Auto) 0.4 Immature Gran # (Auto) 0.20 H Neut # (Auto) 6.13 Lymph # (Auto) 2.03 Isabella # (Auto) 0.64 H Eos # (Auto) 0.01 Baso # (Auto) 0.04 PT 14.1 INR 1.07 PTT (Actin FS) 39.7 Sodium Potassium Chloride Carbon Dioxide Anion Gap BUN Creatinine Estimated GFR/1.73 m2 BUN/Creatinine Ratio Glucose Calculated Osmolality Calcium Total Bilirubin AST ALT Alkaline Phosphatase Creatine Kinase Creatine Kinase Index CK-MB (CK-2) Troponin T High Sens Eie-[id number]-Vlefslmyaqk Pept 229 Total Protein Albumin Globulin Albumin/Globulin Ratio Plasma Lactate Urine Source Urine Color Urine Turbidity Urine pH Ur Specific [place] Urine Protein Ur Glucose (Stick) Ur Ketones (Stick) Urine Blood Urine Nitrite Urine Bilirubin Urobilinogen Dipstick Urine Leukocytes Urine WBC (Auto) Urine RBC (Auto) U Epithel Cells (Auto) Urine Bacteria (Auto) 10/09/19 16:07 WBC RBC Hgb Hct MCV MCH MCHC RDW Std Deviation Plt Count MPV Immature Gran % (Auto) Neut % (Auto) Lymph % (Auto) Isabella % (Auto) Eos % (Auto) Baso % (Auto) Immature Gran # (Auto) Neut # (Auto) Lymph # (Auto) Isabella # (Auto) Eos # (Auto) Baso # (Auto) PT INR PTT (Actin FS) Sodium Potassium Chloride Carbon Dioxide Anion Gap BUN Creatinine Estimated GFR/1.73 m2 BUN/Creatinine Ratio Glucose Calculated Osmolality Calcium Total Bilirubin AST ALT Alkaline Phosphatase Creatine Kinase Creatine Kinase Index CK-MB (CK-2) Troponin T High Sens [id number] Pept Total Protein Albumin Globulin Albumin/Globulin Ratio Plasma Lactate Urine Source CLEAN CATCH Urine Color YELLOW Urine Turbidity CLEAR Urine pH 5.0 Ur Specific [place] 1.017 Urine Protein TRACE A Ur Glucose (Stick) NEGATIVE Ur Ketones (Stick) NEGATIVE Urine Blood NEGATIVE Urine Nitrite NEGATIVE Urine Bilirubin NEGATIVE Urobilinogen Dipstick NORMAL Urine Leukocytes NEGATIVE Urine WBC (Auto) <10 Urine RBC (Auto) <10 U Epithel Cells (Auto) <10 Urine Bacteria (Auto) NEGATIVE Orders Category Date Time Status Cardiac Monitoring NOW Care 10/09/19 12:52 Active Consent for Test/Procedure DIRECTED Care 10/09/19 17:11 Active IV Insertion NOW Care 10/09/19 12:52 Completed May use PICC Line/Port a Cath ORDERED Care 10/09/19 13:30 Active NEWS Score >or=5:Order NEWS Bundle S.O. NOW Care 10/09/19 12:51 Active Notify MD if DIRECTED Care 10/09/19 17:11 Active Notify Provider of NEWS Score NOW Care 10/09/19 12:52 Active Nursing- Obtain EKG once Care 10/09/19 13:11 Active Transfuse .Give-Transfuse Care 10/09/19 17:12 Active CHEST-1 VIEW [RAD] Stat Exams 10/09/19 12:52 Completed BLOOD CULTURE [BLDCUL] Stat Lab 10/09/19 13:47 Results CBC WITH DIFF [HEME] Stat Lab 10/09/19 13:25 Completed CK PROFILE [SP CHEM] Stat Lab 10/09/19 13:25 Completed COMPREHENSIVE METABOLIC PANEL [CHEM] Stat Lab 10/09/19 13:25 Completed INFLUENZA SCREEN A/B Stat Lab 10/09/19 13:53 Completed LACTATE, PLASMA [CHEM] Q3H Lab 10/09/19 13:25 Completed LRPC (RED CELLS) [BBK] Stat Lab 10/09/19 13:25 Received OCCULT BLOOD SCREENING [STOOL] Stat Lab 10/09/19 17:22 Completed PRO B-NATRIURETIC PEPTIDE Stat Lab 10/09/19 13:25 Completed PROTIME WITH INR [COAG] Stat Lab 10/09/19 13:25 Completed PTT [COAG] Stat Lab 10/09/19 13:25 Completed TROPONIN T HIGH SENSITIVITY Stat Lab 10/09/19 13:25 Completed TYPE & SCREEN [BBK] Stat Lab 10/09/19 13:25 Received URINALYSIS W/POSS RFLX CULT [URINALYSIS] Stat Lab 10/09/19 16:07 Completed 0.9% Sodium Chloride Inj [Ns] 1,000 ml Med 10/09/19 13:02 Discontinued IV 999 mls/hr 0.9% Sodium Chloride Inj [Ns] 1,000 ml Med 10/09/19 13:02 Discontinued IV 999 mls/hr 0.9% Sodium Chloride Inj [Ns] 500 ml Med 10/09/19 17:11 Active IV 30 mls/hr 0.9% Sodium Chloride Inj [Ns] 80 ml Med 10/09/19 17:15 Discontinued Pantoprazole [Protonix] 80 mg IV 10 mls/hr 0.9% Sodium Chloride Inj [Ns] 80 ml Med 10/09/19 18:00 Active Pantoprazole [Protonix] 80 mg IV 10 mls/hr Acetaminophen [Tylenol] Med 10/09/19 17:11 Discontinued 650 mg PO PREMED ONE CefEPIME [Maxipime] 1 gm Med 10/09/19 13:02 Discontinued 0.9% Sodium Chloride Inj [Ns] 50 ml IV NOW Diphenhydramine [Benadryl] Med 10/09/19 17:11 Discontinued 25 mg IV PREMED ONE Furosemide [Lasix] Med 10/09/19 17:11 Discontinued 20 mg IV NOW ONE O2 Per Protocol Stat Oth 10/09/19 12:52 Completed EKG [EKG] Stat Ther 10/09/19 13:11 Draft Result Diagrams: 10/09/19 13:25 10/09/19 13:25 - REASSESSMENT Reassessment #1 Time Reassessed: 17:06 Status: improving (GIven iVF bolus, IV maxepime, IV vanc, has Sepsis, but BP improved with IVF bolus only. Lactate negative. Will Type & Cross. Has rec ently had EGD/Colonoscopy by Dr. Engel for rectal bleeding/anemia, and review of old records reveals H/H dropping over the last few weeks.) - EKG 1 Time of EKG reading by physician:: 13:01 EKG Read and Signed by:: Jordi Fernandez EKG Interpretation (*Must complete 3 of following elements*): Normal (borderline) Rate: 97 Rhythm: nsr [place]: normal QRS: other (low voltage qrs) [place] Interval: normal ST Wave: normal - XRAY 1 XRAY: Bilateral XRAY Study: Chest Impression: See EMR Report (EXAM: CHEST-1 VIEW HISTORY: sob TECHNIQUE: Single view COMPARISON: 10/02/2019 FINDINGS: The lungs are well expanded. The heart is not enlarged. No change in the right jugular portacatheter. The vessels are not distended. There are tiny basilar infiltrates. No effusion identified. IMPRESSION: There are tiny basilar infiltrates. Electronically signed by Tee Joshua 10/09/2019 1:36 PM 10/09/19 1004 Interpreting Physician: Tee Joshua MD Dictated Date/Time: 10/09/19 1981 cc: Jordi Fernandez MD; Piero Dao MD) - CONSULTS/PCP/HOSPITALIST Notification #1 *Consult/PCP/Hospitalist*: hospitalist paged @[phone] Time Discussed: 17:32 Reason/Comments: Andrew to admit Consult Disposition: Will see in ED, Admit #2 Consult: Toro paged at [phone] Departure - Departure Date of Disposition Decision: 10/09/19 Time of Disposition Decision: 17:14 DIAGNOSIS: Anemia due to GI blood loss, Acute kidney injury (nontraumatic) Bilateral pneumonia Qualifiers: Pneumonia type: due to unspecified organism Lung location: lower lobe of lung Qualified Code(s): J18.1 - Lobar pneumonia, unspecified organism Breast cancer metastasized to bone Qualifiers: Laterality: unspecified laterality Qualified Code(s): C50.919 - Malignant neoplasm of unspecified site of unspecified female breast; C79.51 - Secondary malignant neoplasm of bone Hypotension, unspecified Qualifiers: Hypotension type: hypotension due to hypovolemia Qualified Code(s): I95.89 - Other hypotension; E86.1 - Hypovolemia Acute hemorrhagic gastritis Qualifiers: Gastritis type: other gastritis Qualified Code(s): K29.01 - Acute gastritis with bleeding Disposition: ADMITTED INPATIENT 09 Certified Medical Emergency: Emergent Condition: Stable Referrals and Follow-Ups: Piero Dao MD [Primary Care Provider] - - Critical Care Note This patient required my direct & personal management of CC.: Yes Total Time (mins): 45 Critical Care Statement: This patient required my direct personal management to treat or rule out processes, the absence of which, could potentiallly result in sudden, clinically significant life or limb threatening deterioration. Attestation - Physician/ VLADIMIR Attestation Patient care was provided by Advanced Practice Provider:: No The physician spent face to face time with patient:: Yes Advanced Practice Provider documentation review:: Supervising physician onsite and consulted in the evaluation and care of this patient. The physician did have a face to face encounter with the patient. This chart was documented by the indicated scribe, (Abigail Mosqueda Scribe) and accurately reflects the services I performed and decisions made by me, Jordi Fernandez MD, as attested by the provider's signature.
[2019-10-09] MEDS: PROTONIX 80 MG in NS 80 ML IV SCH (18:07)
[2019-10-09] MEDS ORDERED: ZOFRAN IV PRN ×2 (18:26→18:34)
[2019-10-09] MEDS ORDERED: TYLENOL PO PRN ×2 (18:26→18:34)
[2019-10-09] MEDS ORDERED: VANCOMYCIN IV PER PHARMACY MISC SCH (18:26)
[2019-10-09] MEDS ORDERED: NS 1,000 ML IV SCH ×2 (18:26→19:00)
[2019-10-09] MEDS ORDERED: DUONEB (A & A) INH SCH (19:30)
--- NOTE | 2019-10-09 19:52 | HISTORY AND PHYSICAL ---
PRIMARY CARE PHYSICIAN: Dr. Piero Dao. ONCOLOGIST: Dr. Marco A Swann. CHIEF COMPLAINT: Back pain. HISTORY OF PRESENTING ILLNESS: This is a 74-year-old female who presents to [facility] with complaints of back pain. She is currently being treated for breast cancer with metastases to the bone with chemo. Last treatment was last Tuesday. Saw her oncologist today, but due to her worsening pain and low blood counts, her chemo was held today, and she was sent to the emergency room for evaluation. Her hemoglobin and hematocrit were 7.2 and 23.5. Her BUN was 42 with a creatinine of 2.6. Her baseline appears to be around 1 to 1.6. Her plasma lactate was 0.7. Her chest x-ray showed tiny basilar infiltrates. When she arrived to the emergency room, her blood pressure was 84/53, so she will be admitted for further evaluation and treatment. PAST MEDICAL HISTORY: Breast cancer with metastases to the bone, hypertension, chronic pain, fibromyalgia, gastritis and ulcers, melanoma, hypothyroidism, and anxiety. PAST SURGICAL HISTORY: Neck and back surgery, port placement, multiple melanoma removals, and hysterectomy. FAMILY HISTORY: Cancer and coronary artery disease in first-degree relatives. SOCIAL HISTORY: She currently lives with family. Denies any tobacco, alcohol or illicit drug use. ALLERGIES: Azithromycin and penicillin. HOME MEDICATIONS: A current list will need to be obtained, reconciled, reviewed and restarted as appropriate. Placed an order for nursing to update and confirm home medications. LABORATORY DATA: Showed a white blood cell count of 9.05, hemoglobin 7.2, hematocrit 23.5, platelets 357. PT/INR of 14.1 and 1.07. Sodium 141, potassium 4.7, chloride 109. CO2 of 20, BUN of 42, creatinine 2.6, glucose 110. Creatine kinase of 325. Troponin T high- sensitivity 22, ProBNP of 229. Plasma lactate of 0.7. Urinalysis was negative. Chest x-ray showed tiny basilar infiltrates. EKG showed normal sinus rhythm at 97. REVIEW OF SYSTEMS: She denied any fever, chills, blurred vision, dizziness, chest pain, coughing, shortness of breath. She did have back pain. Denied any abdominal pain, constipation, diarrhea, burning or hurting with urination. PHYSICAL EXAMINATION: VITAL SIGNS: On arrival, temperature was 98.6 degrees, pulse 96, respirations 20, blood pressure 84/53. Currently she is at 117/53. HEENT: Normocephalic, atraumatic. Normal ENT inspection. Oropharynx and nares are clear. EYES: Pupils are equal, round, and reactive to light and accommodation. Extraocular movements are intact. NECK: Normal inspection, normal range of motion. LUNGS: With decreased breath sounds to the lower bases bilaterally. Clear to the upper with equal lung expansion and chest wall movement noted. HEART: Regular rate and rhythm. No murmurs, rubs, or gallops. ABDOMEN: Soft, nontender, nondistended. Bowel sounds are present x4 quadrants. MUSCULOSKELETAL: He has 5/5 strength x4 extremities. NEUROLOGICAL: Cranial nerves II-XII appear grossly intact. ASSESSMENT: 1. Basilar pneumonia. 2. Anemia. 3. Hypotension. 4. Acute kidney injury. 5. Breast cancer with metastases to bone with chemotherapy ongoing. PLAN: She will be admitted and placed on telemetry. O2 per protocol. Healthy- heart diet. We will apply SCDs for DVT prophylaxis and place on vancomycin per pharmacy protocol. Cefepime 1 g IV every 12 hours, normal saline at 75 mL an hour. Will transfuse 2 units of packed red blood cells. We will premedicate with Tylenol 650 and Benadryl [address] her on a Protonix drip. We will consult Oncology and update and confirm home medications. DuoNeb every 4 hours, and further orders after seen by attending and nursing consultant. Dictated by ADELE Catherine for Pineda Centeno MD Addendum: Patient is seen and examined by myself. Agree with GOAT HERDER note. It reflects my assessment and plan. Patient is being admitted to hospital for basilar pneumonia so will start IV broad spectrum antibiotics. Will transfuse one unit of blood for thia anemia and will check BMP daily for JAS. cc: ADELE Catherine MD [facility] Naveen T. Lobo, MD [facility]OSPITALTeresa
[2019-10-09] MEDS ORDERED: VANCOMYCIN 1 GM/NS 1 GM/250 ML IVPB IV SCH (20:00)
[2019-10-09] MEDS: DUONEB (A & A) INH SCH ×2 (20:05→23:40)
--- NOTE | 2019-10-09 21:23 | HEMO/ONC CONSULTATION ---
DATE: 10/09/2019 REASON FOR CONSULTATION: This is a known patient of ours for the treatment of metastatic breast cancer to the bone. HISTORY OF PRESENT ILLNESS: This 74-year-old female who presents to the ER with complaints of back pain. She presented to the office today with complaints of upper respiratory symptoms. She was given Levaquin. When labs came back later in the day she was found to have a creatinine of 2.9. The patient was notified to go to the ER. Her chemotherapy was held today. On arrival to the ER, her hemoglobin and hematocrit were 7.2 and 23.5, BUN was 42, creatinine of 2.6. Her baseline creatinine is 1 to 1.6. On arrival to the ER her blood pressure was 84/53. She was admitted for further evaluation and treatment. PAST MEDICAL HISTORY: Breast cancer with metastasis to the bone, hypertension, chronic pain, fibromyalgia, gastritis and ulcers, melanoma, hypothyroidism and anxiety. PAST SURGICAL HISTORY: Neck and back surgery, port placement, melanoma and hysterectomy. SOCIAL HISTORY: She denies tobacco, alcohol or illicit drug use. ALLERGIES: Azithromycin and penicillin. HOME MEDICATIONS: Morphine 15 mg IR; levothyroxine 100 mcg; pantoprazole 40 mg; lorazepam 2 mg; multiple vitamin; Reglan 10 mg; vitamin B complex; zinc sulfate 220 mg; vitamin B12; Femara 2.5 mg; Reglan 10 mg. REVIEW OF SYSTEMS: Pertinent points are mentioned in the HPI. PHYSICAL EXAMINATION: Vital signs:: Temperature 98.6 degrees, pulse rate 96, respiratory rate 20, blood pressure 84/53, O2 saturation 95% on room air. The patient is in 6/10 back pain. General: The patient is uncomfortable but is in no acute distress. HEENT: Sclerae anicteric. PERRLA. Oral mucosa is normal. Cardiovascular: Normal S1, S2. Heart rate and rhythm regular. No murmurs noted. Respiratory: Decreased breath sounds noted to lower bases. Upper lung sounds clear to auscultation. Normal respiratory effort. Abdomen soft, nontender, nondistended. Bowel sounds present. Neurological: No focal motor deficits. The patient is alert and oriented x3. LABORATORY DATA: WBCs 9.05, hemoglobin 7.2, hematocrit 23.5, platelet count 357,000. Creatinine 2.6, calcium 7.5, alkaline phosphatase 168. CK 325. DIAGNOSTIC DATA: Chest x-ray shows tiny basilar infiltrates. ASSESSMENT AND PLAN: 1. Basilar pneumonia. Treat per medical management. 2. Breast cancer with metastasis to the bone. The patient is currently being treated with Taxotere, Perjeta and Herceptin. Her first dose was 09/18/2019. Her last dose was 09/25/2019. She has only had one cycle so far. She is also on Xgeva for bone metastasis. Her first dose was 09/13/2019. 4. Chemotherapy-induced anemia. The patient has a normal iron profile. She is on Procrit protocol in the office. 5. Acute kidney injury. Continue to hydrate the patient. Consult Nephrology if necessary. We will continue to monitor. 6. Pain management. The patient is currently taking morphine for pain. Her pain is well controlled. 7. Hypotension. Proceed with medical management. Thank you for your help with this patient. We will continue to follow along. Dictated by ADELE Brown for Marco A Swann MD cc: Marco A Swann MD [facility]
[2019-10-10] MEDS: MAXIPIME 1 GM in NS 50 ML IV SCH ×2 (00:48→14:14)
[2019-10-10] MEDS ORDERED: MAXIPIME 1 GM in NS 50 ML IV SCH (01:00)
[2019-10-10] MEDS: DUONEB (A & A) INH SCH ×6 (03:45→23:33)
[2019-10-10] MEDS: PROTONIX 80 MG in NS 80 ML IV SCH ×2 (04:29→14:14)
[2019-10-10] MEDS ORDERED: SODIUM CHLORIDE 0.9% INJ ONE (08:49)
[2019-10-10] MEDS ORDERED: SYNTHROID IV SCH (09:00)
[2019-10-10] MEDS: NS 1,000 ML IV SCH ×2 (09:35→14:21)
[2019-10-10] MEDS: DILAUDID IV PRN ×2 (09:45→21:12)
[2019-10-10] MEDS: SYNTHROID IV SCH (10:09)
--- NOTE | 2019-10-10 10:18 | PROGRESS NOTE ---
DATE: 10/10/2019 SUBJECTIVE: The patient reports feeling better. Denies any fever or chills. Labs are still pending from 6 a.m. The time of dictation is 9:54, not available yet unfortunately. OBJECTIVE: Vital Signs: Temperature 97.5 degrees, heart rate 91, respiratory rate 16, blood pressure 135/63, O2 saturation 96% on room air. General: This is a chronically ill-looking, 74- year-old female lying in bed, in no acute distress. Cardiovascular: S1, S2 heard. No murmurs, gallops, or rubs. Regular rate and rhythm. Respiratory: Decreased breath sounds in both bases. The patient is not using any accessory muscles or having work of breathing. Abdomen: Soft, nontender to palpation. Nondistended. Bowel sounds present. No organomegaly. Extremities: No clubbing, cyanosis, or edema. Peripheral pulses present in both legs. Neurological: Patient alert oriented x3. Moves 4 extremities. LABORATORY DATA: Pending at the time of my dictation. ASSESSMENT AND PLAN: 1. Bibasilar pneumonia. Patient has been started on vancomycin and Zosyn for this condition. She is not spiking any fever. White cell count is normal from yesterday, and not requiring any oxygen supplementation. At this time, we will continue with the same management. 2. Acute kidney injury. Labs are still pending. We will continue to monitor. 3. Anemia of chronic disease. The patient had yesterday a hemoglobin of 7.2 so we decided to transfuse 1 unit of blood. Of course, the labs are still pending at the time of my dictation. 4. Breast cancer with metastasis to bone with chemotherapy. Dr. Swann from Oncology has been consulted. 5. Disposition. We will continue to monitor this patient closely. cc: Pineda Centeno MD
[2019-10-10 11:40] LABS: BASO# 0.07 X1000 (0.0-0.2); EOS# 0.02 X1000 (0.0-0.7); EOS% 0.3 % (0.0-10.0); HEMATOCRIT 29.6 % (37.0-47.0); HEMOGLOBIN 9.1 g/dL (12.0-16.0); IMM GRAN# 0.22 X1000 (0.0-0.04); IMM GRAN% 3.1 % (0.0-0.5); LYMPH# 2.29 X1000 (1.2-3.4); LYMPH% 32.4 % (20.5-51.1); MCH 29.7 PG (27-31); MCHC 30.7 g/dL (33-37); MCV 96.7 FL (81-99); MONO# 0.46 X1000 (0.11-0.59); MONO% 6.5 % (1.7-9.3); MPV 9.3 FL (7.4-10.4); NEUT# 4.01 X1000 (1.4-6.5); NEUT% 56.7 % (42.2-75.2); PLT 279 X1000 (130-400); RBC 3.06 XMIL (4.2-5.4); RDW 17.3 % (11.5-14.5); WBC 7.07 X1000 (4.8-10.8)
[2019-10-10 12:04] LABS: ALBUMIN 3.1 g/dL (3.5-5.0); PHOSPHORUS 2.8 mg/dL (2.7-4.5); POTASSIUM 4.3 mmol/L (3.5-5.1)
[2019-10-10 12:18] LABS: CALCIUM 6.8 mg/dL (8.8-10.2)
[2019-10-10] MEDS ORDERED: CALCIUM GLUCONATE 2 GM in NS 100 ML IV ONE (12:23)
[2019-10-10] MEDS ORDERED: REGLAN PO PRN (12:42)
--- NOTE | 2019-10-10 13:27 | HEMO/ONC PROGRESS NOTE ---
DATE: 10/10/2019 SUBJECTIVE: Ms. Goldman states she is feeling much better today. She has some pain noted to the left side of her rib cage. She denies any significant complaints. She had a good night. PHYSICAL EXAMINATION: Vital Signs: Temperature 97.5 degrees, pulse rate 91, respiratory rate 16, blood pressure 135/63, O2 saturation 96% on room air. She is in 7/10 back pain. General: This is a chronically ill-appearing, elderly female in no acute distress. Cardiovascular: Normal S1, S2. Heart rate and rhythm regular. No murmurs heard. Respiratory: Diminished breath sounds to bilateral lung bases. Lung sounds clear to auscultation otherwise. Normal respiratory effort. Gastrointestinal.: Abdomen soft, nontender to palpation. Nondistended. Bowel sounds are present. Extremities: No lower extremity edema noted. Neurological: Alert and oriented x3. Follows commands. LABORATORY: WBC 7.07, hemoglobin 9.1, hematocrit 29.6, platelet count 279,000. BUN 36, creatinine 2.0, calcium 6.8, albumin 3.1. TSH 20.6. ASSESSMENT AND PLAN: 1. Bibasilar pneumonia. The patient is on vancomycin and Zosyn. She has not had any fevers. Continue with medical management. The patient appears to be doing well. 2. Acute kidney injury. Creatinine is decreased to 2.0. Continue IV fluids and medical management. 3. Breast cancer with metastasis to the bone. We are currently holding the patient's treatment. Her last treatment was on 09/25/2019 with Taxotere, Perjeta, and Herceptin for bone metastasis. She is on Xgeva. She has had 1 dose on 09/13/2019. 4. Hypocalcemia. Consider replacing her calcium or placing her on a calcium supplement. The patient did have Xgeva for her bone metastasis on 09/13/2019. 5. Chemotherapy-induced anemia. The patient was given 1 unit of blood transfusion. This improved her hemoglobin and hematocrit 9.1 and 29.6. Continue to transfuse her as needed. The patient is also on Procrit in the office. Dictated by ADELE Brown for Marco A Swann MD Admitted with pneumonia and acute kidney injury. Creatinine is improving. Continue antibiotics. Continue current management. Restart MSIR for pain control. Marco A Swann MD cc: Marco A Swann MD MTDD
[2019-10-10] MEDS: MORPHINE IR PO PRN ×2 (14:11→22:24)
[2019-10-10] MEDS: ATIVAN PO PRN ×2 (14:21→21:12)
[2019-10-11] MEDS: DILAUDID IV PRN (00:35)
[2019-10-11] MEDS: NS 1,000 ML IV SCH ×4 (00:35→18:25)
[2019-10-11] MEDS: MAXIPIME 1 GM in NS 50 ML IV SCH ×2 (01:24→13:24)
[2019-10-11] MEDS: DUONEB (A & A) INH SCH ×6 (03:33→23:45)
[2019-10-11] MEDS: PROTONIX 80 MG in NS 80 ML IV SCH ×2 (04:24→11:09)
[2019-10-11] MEDS: ATIVAN PO PRN ×3 (04:28→23:08)
[2019-10-11] MEDS: MORPHINE IR PO PRN ×3 (04:28→19:42)
[2019-10-11] MEDS ORDERED: SODIUM CHLORIDE 0.9% 10 ML ONE (07:14)
[2019-10-11 08:13] LABS: BASO# 0.03 X1000 (0.0-0.2); BASO% 0.4 % (0.0-0.8); EOS# 0.01 X1000 (0.0-0.7); EOS% 0.1 % (0.0-10.0); HEMOGLOBIN 9.2 g/dL (12.0-16.0); IMM GRAN# 0.29 X1000 (0.0-0.04); IMM GRAN% 3.9 % (0.0-0.5); LYMPH# 2.47 X1000 (1.2-3.4); MCH 29.5 PG (27-31); MCHC 30.7 g/dL (33-37); MCV 96.2 FL (81-99); MONO# 0.46 X1000 (0.11-0.59); MONO% 6.1 % (1.7-9.3); MPV 9.5 FL (7.4-10.4); NEUT# 4.22 X1000 (1.4-6.5); NEUT% 56.5 % (42.2-75.2); PLT 304 X1000 (130-400); RBC 3.12 XMIL (4.2-5.4); RDW 17.7 % (11.5-14.5); WBC 7.48 X1000 (4.8-10.8)
[2019-10-11 08:26] LABS: ALBUMIN 2.9 g/dL (3.5-5.0); CALCIUM 7.1 mg/dL (8.8-10.2); CREATININE 1.4 mg/dL (0.5-0.9); PHOSPHORUS 2.1 mg/dL (2.7-4.5); POTASSIUM 4.6 mmol/L (3.5-5.1)
[2019-10-11 08:44] LABS: LYMPHS 20 % (21-51); MONO 2 % (1-9); NRBC 9 % (0-0); SEGS 78 % (42-75)
[2019-10-11] MEDS: ZINC SULFATE PO SCH (09:22)
[2019-10-11] MEDS: SYNTHROID IV SCH (09:22)
[2019-10-11] MEDS: THERA M PLUS PO SCH (09:22)
--- NOTE | 2019-10-11 17:43 | PROGRESS NOTE ---
DATE: 10/11/2019 INTERVAL HISTORY: The patient still with a little nonproductive cough, but dyspnea much improved. Oxygenation excellent. Afebrile. REVIEW OF SYSTEMS: Twelve point review of systems negative except as per interval history. LABS: WBC 7.4, hemoglobin 9.2, hematocrit 30.0, platelets 304,000. Sodium 141, potassium 4.6, BUN 20, creatinine 1.4, glucose 98. VITAL SIGNS: T-max 98.3 degrees, pulse 92, respirations 19, blood pressure 135/63. O2 saturation 99% on room. PHYSICAL EXAMINATION: General: No acute distress. Vitals: As above. HEENT: Normocephalic, atraumatic. Moist mucous membranes. No cervical adenopathy. Cardiovascular: Regular rate and rhythm. No murmurs noted. Pulmonary: Minimally decreased breath sounds throughout, otherwise clear to auscultation bilaterally. Abdomen: Soft, nontender, nondistended. Bowel sounds positive. Extremities: Peripheral pulses intact. No clubbing, cyanosis, or edema. Neurologic: Cranial nerves grossly intact. No focal deficits. Psychiatric: Normal mood and affect. Awake, alert, oriented x3. ASSESSMENT AND PLAN: 1. Pneumonia. Patient on vancomycin and Zosyn currently. Oxygenation excellent. Afebrile. White count normal. If her kidney function continues to improve, then hopefully can be transitioned to p.o. antibiotics and discharge home tomorrow. 2. Acute kidney injury. Exact baseline not precisely certain but appears to likely be between 1.0-1.2. Creatinine 2.6 on admission trending down with fluids to 1.4. Continue 1 more day and see if it will improve any further, but may be beginning to approach baseline. 3. Anemia of chronic disease. Blood counts essentially stable. 4. Breast cancer with bone metastasis known. [facility]
[2019-10-11] MEDS ORDERED: VANCOMYCIN IV SCH (18:00)
[2019-10-11] MEDS ORDERED: NS IV SCH (18:00)
[2019-10-12] MEDS: MAXIPIME 1 GM in NS 50 ML IV SCH ×2 (00:40→13:46)
[2019-10-12] MEDS: MORPHINE IR PO PRN ×2 (01:44→06:00)
[2019-10-12] MEDS: NS 1,000 ML IV SCH ×3 (02:41→16:00)
[2019-10-12] MEDS: DUONEB (A & A) INH SCH ×4 (03:35→16:20)
[2019-10-12] MEDS ORDERED: SYNTHROID PO SCH (07:00)
[2019-10-12 08:31] LABS: BASO# 0.05 X1000 (0.0-0.2); BASO% 0.7 % (0.0-0.8); EOS# 0.01 X1000 (0.0-0.7); EOS% 0.1 % (0.0-10.0); HEMATOCRIT 28.4 % (37.0-47.0); HEMOGLOBIN 8.6 g/dL (12.0-16.0); IMM GRAN# 0.33 X1000 (0.0-0.04); IMM GRAN% 4.5 % (0.0-0.5); LYMPH# 2.11 X1000 (1.2-3.4); LYMPH% 28.8 % (20.5-51.1); MCH 29.1 PG (27-31); MCHC 30.3 g/dL (33-37); MCV 95.9 FL (81-99); MONO# 0.56 X1000 (0.11-0.59); MONO% 7.7 % (1.7-9.3); NEUT# 4.26 X1000 (1.4-6.5); NEUT% 58.2 % (42.2-75.2); PLT 306 X1000 (130-400); RBC 2.96 XMIL (4.2-5.4); RDW 18.1 % (11.5-14.5); WBC 7.32 X1000 (4.8-10.8)
[2019-10-12 08:49] LABS: ALBUMIN 2.7 g/dL (3.5-5.0); PHOSPHORUS 1.4 mg/dL (2.7-4.5); POTASSIUM 4.5 mmol/L (3.5-5.1)
[2019-10-12] MEDS: ZINC SULFATE PO SCH (09:03)
[2019-10-12] MEDS: THERA M PLUS PO SCH (09:03)
[2019-10-12 09:18] LABS: CALCIUM 6.6 mg/dL (8.8-10.2)
[2019-10-12] MEDS ORDERED: TUMS EXTRA STRENGTH PO SCH (09:30)
[2019-10-12] MEDS ORDERED: POTASSIUM PHOSPHATE 30 MMOL in NS 250 ML IV ONE (10:00)
[2019-10-12 11:28] VITALS: BP 161/76
--- NOTE | 2019-10-12 13:08 | HEMO/ONC PROGRESS NOTE ---
DATE: 10/12/2019 SUBJECTIVE: Ms. Goldman is feeling rather well today. She denies any complaints. Her shortness of breath is improved. She is hoping that she can go home today. VITAL SIGNS: Temperature 97.9 degrees, pulse rate 98, respiratory rate 19, blood pressure 161/76, O2 saturation 100% on room air. She is in 0/10 pain. PHYSICAL EXAMINATION: General: Chronically ill-appearing elderly female in no acute distress. Cardiovascular: Normal S1, S2. Heart rate and rhythm regular. Respiratory: Lung sounds are diminished at bases, otherwise are clear to auscultation. Normal respiratory effort. Gastrointestinal: Abdomen soft, nontender to palpation and nondistended. Bowel sounds are present. Extremities: No lower extremity edema noted. Neurological: Alert and oriented x3. ASSESSMENT AND PLAN: 1. Bibasilar pneumonia. Continue to treat the patient on vancomycin and Zosyn. She has not had any fevers. Continue with medical management. Patient appears to be doing well and improving. 2. Acute kidney injury. Creatinine has been improving. It is 1.0 today. Continue medical management. Ok for discharge from our standpoint. 3. Breast cancer with metastasis to the bone. We will follow up with the patient when she is discharged from this hospitalization and continue her treatment. We will continue to monitor her calcium as it has gone low several times. 4. Hypocalcemia. The patient's calcium is again low today. We will monitor her closely for her calcium. Her 1st Xgeva injection was on 09/13/2019. 5. Chemotherapy-induced anemia. The patient was given 1 unit blood transfusion for low hemoglobin and hematocrit. Her numbers continue to be low. Transfuse as needed. She is also on Procrit in the office. We will continue to monitor and follow up with her next week. DISPOSITION: The patient expects to be discharged home over the weekend. Please call us if needed. We will follow up with the patient in the office next week. Dictated by ADELE Brown for Marco A Swann MD cc: Marco A Swann MD [facility]
[2019-10-12] MEDS: ATIVAN PO PRN (13:46)
--- NOTE | 2019-10-14 20:38 | DISCHARGE SUMMARY ---
ADMISSION DATE: 10/09/2019 DISCHARGE DATE: 10/12/2019 CONSULTS: Hematology-Oncology, Dr. Swann. DISCHARGE DIAGNOSES: 1. Pneumonia. 2. Acute kidney injury. 3. Anemia of chronic disease. 4. Breast cancer with metastasis to bone. 5. Hypocalcemia. 6. Hypophosphatemia. HOSPITAL COURSE: Patient with known history of breast cancer with metastasis to bone and chronic pain, presented with complaints primarily of back pain. On initial evaluation she was found to be pretty anemic with a hemoglobin 7.2 and imaging was suggestive of pneumonia at both bases. She was also found to have a significant acute kidney injury with a creatinine of 2.62. Placed on empiric antibiotics with vancomycin and Zosyn. She was transfused 1 unit with appropriate increase. She was given IV fluids. Her respiratory symptoms were fairly mild to begin with and resolved rapidly with antibiotics. Her creatinine also improved quickly with IV fluids. On the day of discharge her creatinine had come down to 1.0. Her hemoglobin and hematocrit responded appropriately to blood was hemoglobin 8.6 on discharge. The patient's acute symptoms were resolved, her acute kidney injury was resolved and her blood counts were essentially stable was decided she was stable enough to be transitioned over to oral Levaquin and discharged home to follow up with her PCP and regular oncologist. She had some low calcium and phosphorus, those were repleted and she was given an additional few days to take by mouth at home. Discharge calcium was 6.6, albumin 2.7, phosphorus 1.4. Her potassium was okay during this hospitalization. DISCHARGE VITAL SIGNS: Temperature 97.9 degrees, pulse 98, respirations 19, blood pressure 161/76, O2 saturation 100% on room air . DISCHARGE MEDICATIONS: Ativan as previously prescribed, morphine IR as previously prescribed, multivitamin, Reglan 10 mg p.o. every 6 hours as needed, K-Phos neutral 250 mg p.o. t.i.d. for 3 days, Levaquin 750 mg p.o. daily for 5 days, Phenergan as previously prescribed, Protonix 40 mg p.o. b.i.d., Synthroid 100 mcg p.o. daily, calcium carbonate 750 mg p.o. daily for 3 days. DISCHARGE PLAN AND FOLLOWUP: Patient discharging home on oral Levaquin finish treatment for pneumonia. Continue calcium and phosphorus for another 3 days to treat those levels. Patient to follow up with her PCP and oncologist. Greater than 30 minutes spent arranging discharge, counseling patient. RODDY
== END 2019-10-12 16:21 | disposition home health service (06) | DRG 194 ==
LOC: ED 12:40 → SUATTDRO 18:57 → EDIPHOLD 18:57 → 3N 21:34
PROVIDERS: ATTEND Internal Medicine

== ENCOUNTER 2019-10-23 10:15 | Inpatient (IN) ==
[2019-10-23] MEDS ORDERED: TYLENOL PO PRN (15:50)
[2019-10-23] MEDS ORDERED: ZOFRAN IV PRN (15:50)
--- NOTE | 2019-10-23 16:18 | EKG Report ---
Test Performed on : 10/23/2019 4:10:10 PM Test Reason : rythm eval Blood Pressure : / mmHG Vent. Rate : 098 BPM Atrial Rate : 098 BPM P-R Int : 134 ms QRS Dur : 082 ms QT Int : 346 ms P-R-T Axes : 052 028 048 degrees QTc Int : 441 ms Normal sinus rhythm. Normal ECG When compared with ECG of 09-OCT-2019 13:01, (Unconfirmed) No significant change was found Confirmed by Omid Rodriguez MD ([id number]) on 10/24/2019 3:44:29 PM
--- NOTE | 2019-10-23 16:49 | HISTORY AND PHYSICAL ---
PRIMARY CARE PROVIDERS: Dr. Piero Dao PRIMARY ONCOLOGIST: Dr. Marco A Swann. CHIEF COMPLAINT: Elevated creatinine found at Dr. Swann's office and lower extremity swelling. HISTORY OF PRESENT ILLNESS: Ms. Abiola Goldman is a 74-year-old, female who is currently being treated for metastatic breast cancer with metastasis to the bone. She has had Taxotere on September 18 and and she has had Xgeva once as well. She also has a history of COPD, anxiety, fibromyalgia. She was most recently here between October 08 to October 11. She was treated for pneumonia, acute kidney injury, hypocalcemia and hypophosphatemia. She was given a dose of Lasix for the lower extremity swelling on the 18 of October. Today, she came in for her routine 2nd round of chemotherapy. She had much more significant swelling of the lower extremities and they did a creatinine level which came back at 4.3. The day she had received her Lasix the creatinine was 1.1. She has also had a 4-pound weight gain. The patient claims that the swelling actually started 2 days before she was discharged, that would have been the 09 October and has just essentially worsened ever since. She does have tenderness when she flexes her feet or lower extremities. She is going to get an ultrasound of the lower extremities. We are going to get an echocardiogram. Given the kidney dysfunction we will do some urine studies, renal ultrasound, and give her some IV fluid hydration. PAST MEDICAL HISTORY: 1. Breast cancer with metastasis to the bone. 2. Hypertension. 3. Chronic pain syndrome with fibromyalgia. 4. Gastritis and peptic ulcer disease. 5. Melanoma. 6. Hypothyroidism. 7. Anxiety. 8. COPD. SURGICAL HISTORY: 1. Neck and back surgery. 2. Port placement. 3. Multiple melanoma excisions. 4. Hysterectomy. 5. EGD on 10/03/[address] Piero Engel and that was due to anemia, melena and hematochezia which showed she had mild gastritis and clean based ulcers ranging between 3 to 7 mm in size. Biopsies were taken and Helicobacter pylori was ruled out. The duodenum also had some ulcers at that time. The recommendation was for 3 months of Protonix twice a day, so this was performed on the last admission. SOCIAL HISTORY: Lives with family. Denies tobacco, alcohol or illicit drug use. FAMILY HISTORY: Positive for cancer, coronary disease. ALLERGIES: Azithromycin and penicillin. HOME MEDICATIONS: Not yet reconciled, but she was discharged on the on: 1. Tums or calcium carbonate 750 mg p.o. daily for 3 days. 2. Synthroid 100 mcg p.o. daily at 0700. 1. Protonix 40 mg p.o. twice daily. 2. Phenergan 25 mg p.o. every 6 hours p.r.n. 3. Levaquin 750 mg p.o. daily for 5 days, that should have been completed. 4. K-Phos. She got that 250 mg p.o. t.i.d. for 3 days. 5. Zinc 50 mg p.o. daily. 6. Reglan 10 mg p.o. q.6 hours p.r.n. 7. Multivitamin 1 tablet p.o. daily. 8. Morphine immediate release 15 mg p.o. every 4 to 6 hours p.r.n. 9. Ativan 2 mg p.o. t.i.d. p.r.n. REVIEW OF SYSTEMS: Fourteen point review of systems are complete and all are negative except for those mentioned above in the HPI. PHYSICAL EXAMINATION: VITAL SIGNS: Vital signs are not yet recorded, but she is 5 feet 4 inches tall and 170 pounds with a BMI of 29.2. GENERAL: Ms. Abiola Goldman is a 74-year-old, female. She is in no acute distress. She is able to answer questions appropriately. HEENT: Atraumatic, normocephalic. Pupils equal, round, reactive to light. Extraocular movements intact. Mucous membranes are dry. NECK: Trachea midline. CARDIOVASCULAR: S1, S2. Regular rate and rhythm. No rubs, gallops, murmurs. She has got 4+ lower extremity pitting edema with skin peeling and dryness. They are not red, +1 dorsalis pedal pulses, +2 radial pulses. Negative JVD or carotid bruits. PULMONARY: Clear to auscultation bilateral breath sounds. No accessory muscle use or work of breathing noted. GASTROINTESTINAL: Abdomen soft, nontender, nondistended. Positive bowel sounds x4. EXTREMITIES: Moves all extremities equally. Decreased range of motion of lower extremities due to the heaviness of them. NEUROLOGIC: Oriented x3. Follows commands. Decreased sensory in the lower extremities. SKIN: Warm, dry, intact except for the skin seems to be peeling of the lower extremities. LABORATORY DATA: Verbal report by Dr. Swann's nurse practitioner today she had a creatinine of 4.3. Currently, all labs have been ordered and still pending. IMAGING: None available yet. ASSESSMENT AND PLAN: 1. Acute kidney injury. Rule out prerenal versus intrarenal or acute tubular necrosis. We will do urine studies and get a renal ultrasound. She did receive Lasix recently. 2. Recent history of pneumonia. We will get a chest x-ray and a CBC. 3. Recent electrolyte abnormalities including hypophosphatemia and hypocalcemia, so those will be checked as well. 4. Recent gastrointestinal workup with blood transfusion earlier this month showed gastritis and peptic ulcer disease. 5. Breast cancer with metastasis to the bone. She has had Taxotere on September 18 and . She had Xgeva as well. Dr. Swann is aware of patient and she will be admitted and he will follow. 6. Chronic obstructive pulmonary disease. No exacerbation at this time. 7. Anxiety, stable. 8. Chronic pain syndrome with fibromyalgia. Waiting for home medications to be reconciled to get those resumed. 9. Peptic ulcer disease prophylaxis most recent recommendation on the 02 of October was for Protonix p.o. twice a day for 3 months, which we will continue. 10. Hypothyroidism. Continue Synthroid. 11. Hypertension. Still waiting for home medications to be reconciled, but she is actually on the lower side, earlier was 90/[address] Swann's office. Received fluids that brought her back up to low 100s, so we will hold off on any antihypertensives if she takes any. 12. Bilateral lower extremity swelling. We are going to get a echocardiogram and lower extremity ultrasound. Dictated by ADELE Suarez for Ismael Setve MD cc: ADELE Suarez MD
[2019-10-23 17:01] LABS: BASO# 0.03 X1000 (0.0-0.2); BASO% 0.7 % (0.0-0.8); EOS# 0.13 X1000 (0.0-0.7); EOS% 2.9 % (0.0-10.0); HEMATOCRIT 26.8 % (37.0-47.0); HEMOGLOBIN 8.3 g/dL (12.0-16.0); IMM GRAN# 0.04 X1000 (0.0-0.04); IMM GRAN% 0.9 % (0.0-0.5); LYMPH# 1.22 X1000 (1.2-3.4); LYMPH% 27.5 % (20.5-51.1); MCH 29.4 PG (27-31); MONO# 0.53 X1000 (0.11-0.59); MONO% 11.9 % (1.7-9.3); MPV 8.9 FL (7.4-10.4); NEUT# 2.49 X1000 (1.4-6.5); NEUT% 56.1 % (42.2-75.2); PLT 294 X1000 (130-400); RBC 2.82 XMIL (4.2-5.4); RDW 18.4 % (11.5-14.5); WBC 4.44 X1000 (4.8-10.8)
[2019-10-23 17:18] LABS: INR 1.23; PROTIME 15.7 Seconds (11.0-16.0)
[2019-10-23 17:19] LABS: PTT 49.5 Seconds (22.3-41.8)
[2019-10-23 17:37] LABS: ALB/GLOB RATIO 0.9; CALCIUM 6.3 mg/dL (8.8-10.2); CREATININE 3.9 mg/dL (0.5-0.9); MAGNESIUM 1.6 mg/dL (1.5-2.7); POTASSIUM 3.6 mmol/L (3.5-5.1); TOTAL BILIRUBIN 0.29 mg/dL (0.20-1.00); TOTAL PROTEIN 6.4 g/dL (6.3-8.3)
--- NOTE | 2019-10-23 17:50 | Diag Imaging Result Doc PS360 ---
EXAM: CHEST-2 VIEWS INDICATION: r/o pna TECHNIQUE: 2 views COMPARISON: 10/09/2019 FINDINGS: The right chest port is in stable position. There has been interval development of a small right pleural effusion. There is adjacent mild right basilar atelectasis and/or infiltrate. There is questionable mild infiltrate at the left lung base as well. There is no evidence of pneumothorax. Cardiac silhouette is unremarkable. IMPRESSION: Interval development of small right pleural effusion with adjacent atelectasis and/or infiltrate and possible vague infiltrate at the left lung base as well. Electronically signed by Sunny Alonso 10/23/2019 5:47 PM
--- NOTE | 2019-10-23 18:38 | HISTORY AND PHYSICAL ---
ADDENDUM: This is an H P addendum. This is a 74-year-old cancer patient, metastatic breast cancer to the bone who was recently admitted for pneumonia. She had acute kidney injury, then but it resolved. Her creatinine went down to 1, then today for pre chemo labs her creatinine went up to 4.3. She has lower extremity swelling, decreased urine output, maybe. She cannot confirm or deny that. She does say she has not been eating and drinking very well since discharge. Again, most recent creatinine from today is 4.3, ours is 3.9, which is definitely an increase. Her calcium though is low, but she did receive denosumab, we believe, the RANKL receptor antibody, which decreased osteoclastic function, so the calcium may be falsely lower. It may be hypercalcemic, but in any case she has acute kidney injury. We will continue hydration, check urine labs, and we ordered a Ureaplasma PCR, so in any case, patient is stable. She seems to be doing okay. If not improved, we may need to get a Nephrology consult, but I anticipate that will be resolving with hydration hopefully. cc: Ismael Steve MD
--- NOTE | 2019-10-23 19:26 | Diag Imaging Result Doc PS360 ---
EXAM: US RENAL 2 (RETROPER) COMPLETE INDICATION: faith TECHNIQUE: COMPARISON: 08/06/2019 FINDINGS: There is a 1.2 cm cyst at the upper pole of the left kidney. The kidneys are grossly normal in echotexture, otherwise. No discrete renal mass or hydronephrosis is appreciated. Both kidneys measure up to 9 cm in greatest longitudinal axis. The right renal cortex measures 1.1 cm and the left renal cortex measures 0.9 cm in thickness. Urinary bladder is grossly unremarkable. IMPRESSION: Small renal cyst on the left. Unremarkable renal ultrasound, otherwise. Electronically signed by Sunny Alonso 10/23/2019 7:24 PM
[2019-10-23] MEDS: MORPHINE IR PO PRN (22:43)
[2019-10-23] MEDS: HEPARIN SUBQ SCH (22:49)
[2019-10-23] MEDS: NS 1,000 ML IV SCH (22:49)
[2019-10-23] MEDS: ATIVAN PO PRN (22:50)
[2019-10-24 07:53] LABS: ALB/GLOB RATIO 0.9; ALBUMIN 2.5 g/dL (3.5-5.0); CREATININE 3.2 mg/dL (0.5-0.9); MAGNESIUM 1.6 mg/dL (1.5-2.7); PHOSPHORUS 2.9 mg/dL (2.7-4.5); POTASSIUM 3.8 mmol/L (3.5-5.1); TOTAL BILIRUBIN 0.23 mg/dL (0.20-1.00); TOTAL PROTEIN 5.2 g/dL (6.3-8.3)
[2019-10-24 08:05] LABS: CALCIUM 5.5 mg/dL (8.8-10.2)
[2019-10-24 08:10] LABS: BASO# 0.04 X1000 (0.0-0.2); BASO% 1.1 % (0.0-0.8); EOS# 0.15 X1000 (0.0-0.7); EOS% 4.1 % (0.0-10.0); HEMATOCRIT 24.1 % (37.0-47.0); HEMOGLOBIN 7.4 g/dL (12.0-16.0); IMM GRAN# 0.02 X1000 (0.0-0.04); IMM GRAN% 0.6 % (0.0-0.5); LYMPH# 1.42 X1000 (1.2-3.4); LYMPH% 39.2 % (20.5-51.1); MCH 28.9 PG (27-31); MCHC 30.7 g/dL (33-37); MCV 94.1 FL (81-99); MONO# 0.51 X1000 (0.11-0.59); MONO% 14.1 % (1.7-9.3); MPV 8.8 FL (7.4-10.4); NEUT# 1.48 X1000 (1.4-6.5); NEUT% 40.9 % (42.2-75.2); PLT 269 X1000 (130-400); RBC 2.56 XMIL (4.2-5.4); RDW 18.4 % (11.5-14.5); WBC 3.62 X1000 (4.8-10.8)
[2019-10-24] MEDS: NS 1,000 ML IV SCH ×2 (08:19→19:08)
[2019-10-24] MEDS ORDERED: CALCIUM GLUCONATE 1 GM in NS 50 ML IV ONE (08:32)
[2019-10-24] MEDS: HEPARIN SUBQ SCH ×2 (08:38→21:46)
[2019-10-24] MEDS: MORPHINE IR PO PRN (14:04)
--- NOTE | 2019-10-24 15:01 | HEMO/ONC CONSULTATION ---
DATE: 10/24/2019 REASON FOR CONSULTATION: She is a known patient of ours for the treatment of metastatic breast cancer to the bone. HISTORY OF PRESENT ILLNESS: Ms. Goldman is a 74-year-old female, who came to our office yesterday for routine treatment of metastatic breast cancer. However, she presented with significant swelling of her lower extremities, and labs revealed a significant elevation in her creatinine at 4.3. The patient has also had a 4 pound weight gain. She was most recently admitted to the hospital on October 08. At that time, she was beginning to have lower extremity swelling. We gave her Lasix shortly after her discharge. On her prior visit on 10/19/2019, the patient's creatinine was 1.12; exactly 4 days later, it had increased to 4.33. Upon my assessment today, the patient tells me that she is sore all over from the swelling. She has no other complaints. In the office, the patient was recently diagnosed with metastatic breast cancer to the bone ER, DC, HER2 MICHELLE positive. She was started on Taxotere, Herceptin and Perjeta on 09/18/2019. She was to begin her 2nd cycle yesterday when she was admitted. Her chemotherapy was again held. PAST MEDICAL HISTORY: Breast cancer with metastasis to the bone, hypertension, chronic pain, fibromyalgia, gastritis with ulcers, melanoma, hypothyroidism and anxiety. PAST SURGICAL HISTORY: Neck and back surgeries, port placement, melanoma removal and hysterectomy. SOCIAL HISTORY: She denies tobacco, alcohol, or illicit drug use. ALLERGIES: Azithromycin and penicillin. HOME MEDICATIONS: Morphine IR, levothyroxine, pantoprazole, lorazepam, multivitamins, Reglan, vitamin B complex, zinc sulfate, vitamin B 12, Femara and Reglan. REVIEW OF SYSTEMS: The patient has complains of soreness to arms and legs. She denies pain anywhere else. All other review of systems are negative. PHYSICAL EXAMINATION: Vital Signs: Temperature 98.4 degrees, pulse rate 83, respiratory rate 16, blood pressure 93/52, O2 saturation 96% via nasal cannula at 2 liters. She is in 7/10 neck and back pain. General: On physical examination, the patient was in no acute distress. She appeared comfortable and not anxious. HEENT: Sclerae anicteric. PERRLA. Oral mucosa is normal. Cardiovascular: Normal S1, S2. Heart rate and rhythm regular. No murmurs noted. Respiratory: Lung sounds were clear to auscultation. Normal respiratory effort. Abdomen: Soft, nontender, nondistended. Positive bowel sounds. Extremities: 3+ pitting edema of the bilateral lower extremities. Lower extremities are warm, not red. Neurological: Alert and oriented x3. No focal motor deficits noted. LABORATORY: WBCs 3.62, hemoglobin 7.4, hematocrit 24.1, platelet count 269,000. Creatinine 3.2, calcium 5.5, potassium 3.8. AST 58, alkaline phosphatase 178. IMAGIN. Renal ultrasound shows small renal cyst on the left, unremarkable otherwise. 2. Chest x-ray: Interval development of small right pleural effusion. ASSESSMENT AND PLAN: 1. Acute kidney injury. The patient's renal ultrasound was negative. 2. Recent history of pneumonia. 3. Hypocalcemia. Continue to replace as you are doing. She does receive xgeva. It could be contributing. 4. Chemotherapy-induced anemia. We are monitoring. 5. Metastatic breast cancer to the bone. The patient's last dose of Taxotere, Perjeta, and Herceptin was 09/25/2019. Her last dose of Xgeva was 10/16/2019. 6. Bilateral lower extremity swelling. 7. DVT prophylaxis: Continue SQ heparin. Dictated by ADELE Brown for Marco A Swann MD Admitted with acute kidney injury. Renal US negative. Continue IVF. Creatinine trending down. Appreciate Hospitalist care. Marco A Swann MD cc: Marco A Swann MD [facility]
--- NOTE | 2019-10-24 16:56 | PROGRESS NOTE ---
DATE: 10/24/2019 SUBJECTIVE: Patient has no major complaints. OBJECTIVE: Blood pressure is 106/63, heart rate of 87, respiratory rate 20, temperature 97.7 degrees.Cardiovascular: Regular rate and rhythm. Pulmonary: Bilateral breath sounds clear to auscultation. GI: Soft, nontender, nondistended. Bowel sounds are positive. LABORATORY DATA: White count 3, hemoglobin and hematocrit 7 and 24, platelets 269,000. Creatinine is down to 3.2, calcium of 5.5. PROBLEM LIST: 1. Acute kidney injury, which kind of goes up and down but is improving with hydration. We will continue IV fluids. Clinically, patient feels improved. 2. Anemia which has progressed, along with leukopenia. She may require transfusion. We will continue to monitor at this point. Dr. Swann is also following. 3. Metastatic breast cancer. She is status post Taxotere and Xgeva. We will continue to monitor. 4. Hypertension. Her blood pressure is stabilized. I am not going to pursue any other treatments right now. 5. Hypocalcemia. We will supplement and follow. cc: Ismael Steve MD
[2019-10-24 17:18] LABS: UR CREAT RANDOM 112.5 mg/dL (11-20)
[2019-10-24 18:54] LABS: URINE SOURCE CLEAN CATCH
[2019-10-24 19:01] LABS: BILIRUBIN URINE NEGATIVE (NEGATIVE); BLOOD URINE NEGATIVE (NEGATIVE); CLARITY CLEAR (CLEAR); COLOR YELLOW; GLUCOSE URINE NEGATIVE (NEGATIVE); KETONE URINE NEGATIVE (NEGATIVE); LEUKOCYTES URINE NEGATIVE (NEGATIVE); NITRITE URINE NEGATIVE (NEGATIVE); PROTEIN URINE NEGATIVE (NEGATIVE); UROBILINOGEN URINE 0.2 EU/dL (0.2-1.0)
[2019-10-24 19:11] LABS: URINE BACTERIA NEGATIVE /HFP; URINE EPITHELIAL CELLS <10 /HPF (<10); URINE RBC <10 /HPF (<10); URINE SMALL ROUND CELLS RENAL PRESENT; URINE WBC <10 /HPF (<10)
[2019-10-24] MEDS: ATIVAN PO PRN (21:46)
[2019-10-25] MEDS: MORPHINE IR PO PRN ×3 (04:03→23:01)
[2019-10-25] MEDS: NS 1,000 ML IV SCH ×3 (04:09→18:07)
[2019-10-25 07:13] LABS: BASO# 0.05 X1000 (0.0-0.2); BASO% 1.6 % (0.0-0.8); EOS# 0.12 X1000 (0.0-0.7); EOS% 3.9 % (0.0-10.0); HEMATOCRIT 26.6 % (37.0-47.0); HEMOGLOBIN 7.9 g/dL (12.0-16.0); IMM GRAN# 0.03 X1000 (0.0-0.04); LYMPH# 1.33 X1000 (1.2-3.4); LYMPH% 43.5 % (20.5-51.1); MCH 28.4 PG (27-31); MCHC 29.7 g/dL (33-37); MCV 95.7 FL (81-99); MONO# 0.43 X1000 (0.11-0.59); MONO% 14.1 % (1.7-9.3); MPV 9.3 FL (7.4-10.4); NEUT% 35.9 % (42.2-75.2); PLT 284 X1000 (130-400); RBC 2.78 XMIL (4.2-5.4); RDW 18.7 % (11.5-14.5); WBC 3.06 X1000 (4.8-10.8)
[2019-10-25 07:34] LABS: ALBUMIN 2.7 g/dL (3.5-5.0); CREATININE 1.8 mg/dL (0.5-0.9); MAGNESIUM 1.4 mg/dL (1.5-2.7); PHOSPHORUS 2.2 mg/dL (2.7-4.5); POTASSIUM 3.7 mmol/L (3.5-5.1); TOTAL BILIRUBIN 0.21 mg/dL (0.20-1.00); TOTAL PROTEIN 5.3 g/dL (6.3-8.3)
[2019-10-25 08:00] LABS: CALCIUM 5.7 mg/dL (8.8-10.2)
[2019-10-25] MEDS ORDERED: CALCIUM GLUCONATE 1 GM in NS 50 ML IV ONE (08:28)
[2019-10-25] MEDS: HEPARIN SUBQ SCH ×2 (09:07→23:02)
[2019-10-25] MEDS: CALTRATE 600 + D PO SCH ×2 (09:07→23:02)
--- NOTE | 2019-10-25 12:50 | HEMO/ONC PROGRESS NOTE ---
DATE: 10/25/2019 SUBJECTIVE: Ms Goldman states she feels a little better than she did yesterday. She continues to complain of soreness from her significant swelling that has now decreased. She states she has a little bit of appetite. She has no specific complaint of pain. She had no significant events overnight. OBJECTIVE: Vital Signs: Temperature 97.7 degrees, pulse rate 87, respiratory rate 20, blood pressure 113/59, O2 saturation 95% via nasal cannula at 2 L. The patient states she is in 7/10 pain described as soreness all over. PHYSICAL EXAMINATION: General: The patient is in no acute distress. She appears somewhat depressed affect. Cardiovascular: Normal S1, S2. Regular rate and rhythm. Respiratory: Lung sounds are clear to auscultation. Normal respiratory effort. Abdomen: Soft, nontender, nondistended. Bowel sounds present. Extremities: The patient's edema is no longer pitting. She has mild edema with areas where skin had started to peel due to the extreme edema. Neurological: Alert and oriented x3. No focal motor deficits. LABORATORY DATA: WBCs 3.06, hemoglobin 7.9, hematocrit 26.6, platelet count 284,000. Creatinine 1.8, calcium 5.7, magnesium 1.4, phosphorus 2.2. ASSESSMENT AND PLAN: 1. Acute kidney injury. This appears to be improving with hydration. Continue medical management as you were doing. 2. Hypocalcemia. Continue to replace as you were doing. She does receive Xgeva, which could be contributing. 3. Chemotherapy-induced anemia. We are continuing to monitor. She will require a transfusion for hemoglobin of less than 7 or per your discretion. 4. Metastatic breast cancer. The patient is currently undergoing therapy in the clinic with Taxotere, Perjeta, and Herceptin. We will follow up with her when she recovers from this acute illness. 5. Bilateral lower extremity swelling. This appears to have improved. The patient complains of soreness. Continue medical management. 6. Deep venous thrombosis prophylaxis. The patient is on subcutaneous heparin. She has been encouraged to get out of the bed today and try sitting in the chair. Dictated by ADELE Brown for Marco A Swann MD cc: Marco A Swann MD [facility]
[2019-10-25] MEDS ORDERED: MAGNESIUM SULFATE 2 GM/S.W.I. 2 GM/50 ML IVPB IV ONE (17:35)
--- NOTE | 2019-10-25 17:49 | PROGRESS NOTE ---
DATE: 10/25/2019 SUBJECTIVE: The patient has no major complaints. OBJECTIVE: vital signs: Blood pressure is 110/57, heart rate of 85, respiratory rate 16, temperature 97.6 degrees, and oxygen saturation 98% on 2 L. Cardiovascular: Regular rate and rhythm. Pulmonary: Bilateral breath sounds. Clear to auscultation. Gastrointestinal: Soft, nontender, nondistended. Bowel sounds are positive. LABORATORIES: White count 3, hemoglobin and hematocrit 7 and 26, platelets of 284,000. Creatinine is down to 1.8, BUN down to 32, calcium of 5.7, magnesium of 1.4. PROBLEM LIST: 1. Acute on chronic renal failure. She seems to be doing okay. Objective blood pressure is 110/57, heart rate 85, respiratory rate 16. So for her acute on chronic renal failure, we are going to continue gentle hydration and monitor. She seems to be doing okay. Tolerating the fluids. 2. Hypocalcemia. We will continue to supplement and follow closely. 3. Metastatic breast cancer. We are going to continue to monitor. Hematology-Oncology has been consulted. They are following closely as well. DISPOSITION: Hopefully home in the next 1 to 2 days. We will continue to monitor. cc: Ismael Steve MD
[2019-10-25] MEDS: ATIVAN PO PRN (18:05)
[2019-10-26] MEDS: NS 1,000 ML IV SCH (02:51)
--- NOTE | 2019-10-26 06:21 | Extremity Venous Study ---
PROCEDURE NAME: Venous U/S Bilateral Legs - 10/23/2019 REQUESTING PROVIDER: Carlos. VESSEL MANAGER: Kilo. INDICATIONS: Edema and redness in both legs. EQUIPMENT: [employer]endspace Vivid E9 ultrasound system and a 9 L-D transducer. FINDINGS: Images of the bilateral lower extremity venous systems were obtained in both sagittal and transverse planes. Doppler was used to evaluate veins for spontaneity, phasicity, respiratory excursion, and digital augmentation. RESULTS: Reflux noted in the right common femoral vein noted to be 1.18 seconds. There is no obvious superficial or deep venous thrombosis noted. INTERPRETATION: Reflux noted in the right common femoral vein, but no obvious superficial or deep venous thrombosis noted. If clinical suspicion holds, patient may benefit from bilateral lower extremity reflux study to evaluate the full extent of reflux better. cc: MD Nabila Bangura CRNP
[2019-10-26 07:07] LABS: BASO# 0.03 X1000 (0.0-0.2); BASO% 0.8 % (0.0-0.8); EOS# 0.16 X1000 (0.0-0.7); EOS% 4.2 % (0.0-10.0); HEMATOCRIT 25.7 % (37.0-47.0); HEMOGLOBIN 7.7 g/dL (12.0-16.0); IMM GRAN# 0.09 X1000 (0.0-0.04); IMM GRAN% 2.3 % (0.0-0.5); LYMPH# 1.63 X1000 (1.2-3.4); LYMPH% 42.4 % (20.5-51.1); MCH 28.6 PG (27-31); MCV 95.5 FL (81-99); MONO% 10.4 % (1.7-9.3); MPV 8.9 FL (7.4-10.4); NEUT# 1.53 X1000 (1.4-6.5); NEUT% 39.9 % (42.2-75.2); PLT 292 X1000 (130-400); RBC 2.69 XMIL (4.2-5.4); RDW 18.7 % (11.5-14.5); WBC 3.84 X1000 (4.8-10.8)
[2019-10-26 07:35] LABS: AGAP 8; ALB/GLOB RATIO 1.1; ALBUMIN 2.5 g/dL (3.5-5.0); ALKALINE PHOSPHATASE 148 U/L (32-104); BUN 19 mg/dL (8-22); CHLORIDE 108 mmol/L (98-107); COSMO 285; CREATININE 0.9 mg/dL (0.5-0.9); ESTIMATED GFR > 60; GLUCOSE 99 mg/dL (70-104); GOT 25 U/L (10-30); GPT 18 U/L (10-36); MAGNESIUM 1.6 mg/dL (1.5-2.7); PHOSPHORUS 1.8 mg/dL (2.7-4.5); POTASSIUM 3.6 mmol/L (3.5-5.1); SODIUM 142 mmol/L (136-145); TCO2 26 mmol/L (25-35); TOTAL BILIRUBIN 0.23 mg/dL (0.20-1.00); TOTAL PROTEIN 4.8 g/dL (6.3-8.3)
[2019-10-26 07:43] LABS: CALCIUM 6.7 mg/dL (8.8-10.2)
[2019-10-26] MEDS: HEPARIN SUBQ SCH ×2 (08:49→20:10)
[2019-10-26] MEDS: CALTRATE 600 + D PO SCH ×2 (08:49→20:10)
[2019-10-26] MEDS: ATIVAN PO PRN ×2 (08:49→20:10)
--- NOTE | 2019-10-26 11:34 | HEMO/ONC PROGRESS NOTE ---
DATE: 10/26/2019 SUBJECTIVE: Ms. Goldman states she feels a little bit better today. She denies any complaints other than soreness. She does state that it is getting better. She had no acute events overnight. The patient states she is ready to go home. She is getting up and walking around a little bit more. OBJECTIVE: Vital Signs: Temperature 99.6 degrees, pulse rate 94, respiratory rate 17, blood pressure 125/69, O2 saturation 94% on 2 L via nasal cannula. She complains of soreness all over. PHYSICAL EXAMINATION: General: The patient is calm and in no acute distress. Respiratory: Lung sounds are clear. Normal respiratory effort. Cardiovascular: Regular rate and rhythm. Gastrointestinal: Soft, nontender, nondistended. Extremities: Lower extremities have mild edema. No pitting. Some excoriation from the extreme edema. Neurological: Alert and oriented x3. No focal motor deficits. LABORATORY: WBCs 3.84, hemoglobin 7.7, hematocrit 25.7, platelet count 292,000. Calcium 6.7, phosphorus 1.8, alkaline phosphatase 148. ASSESSMENT AND PLAN: 1. Acute kidney injury. This has improved with gentle hydration. She seems to be tolerating treatment well. Continue medical management as you are doing. 2. Hypocalcemia. Continue to supplement the patient as you are doing. It is possible that the Xgeva could be contributing to this. 3. Metastatic breast cancer. The patient is currently undergoing therapy in the clinic. We will follow up with her when she recovers from this acute illness. 4. Chemotherapy-induced anemia. We are continuing to monitor. She will need a transfusion for hemoglobin of less than 7. 5. Deep venous thrombosis prophylaxis. Continue the patient on subcutaneous heparin. Encourage her to get up out of the bed and try walking more today. She tells me she sat up in a chair most of yesterday. DISPOSITION: We will monitor peripherally over the weekend. Please call us if needed. Dictated by ADELE Brown for Marco A Swann MD cc: Marco A Swann MD
[2019-10-26] MEDS: MORPHINE IR PO PRN ×2 (14:27→23:03)
[2019-10-26] MEDS ORDERED: SODIUM PHOSPHATE 40 MEQ in NS 250 ML IV ONE (16:59)
--- NOTE | 2019-10-26 17:13 | PROGRESS NOTE ---
DATE: 10/26/2019 SUBJECTIVE: The patient has no major complaints. OBJECTIVE: Vital Signs: Blood pressure 136/66, heart rate 87, respiratory rate 16, temperature 98.1 degrees. Cardiovascular: Regular rate and rhythm. Pulmonary: Bilateral breath sounds diminished at bases. GI: Abdomen was soft, nontender, nondistended. Bowel sounds are positive. LABORATORY DATA: White count 3, hemoglobin and hematocrit 7 and 25, platelets 292,000. Basic was normal. Calcium 6.7 but her creatinine is down to 0.9. Her phosphorus is 1.8. PROBLEM LIST: 1. Acute kidney injury that seems to be stabilizing. I am going to stop her fluids and follow. It sounds like just poor oral intake. 2. Hypocalcemia. We will continue supplement. This may be related to her bisphosphonate. 3. Metastatic breast cancer. Aware of diagnosis. She seems to be doing okay. DISPOSITION: I think she is probably okay to go home. We are going to try to wean her O2 and see how she does. I anticipate discharge hopefully in the next 24 hours. cc: Ismael Steve MD
[2019-10-26] MEDS: ZINC SULFATE PO SCH (20:10)
[2019-10-26] MEDS: PROTONIX [NONFORMULARY] PO SCH (20:10)
[2019-10-27] MEDS: MORPHINE IR PO PRN ×3 (04:20→17:59)
[2019-10-27] MEDS: SYNTHROID PO SCH (06:09)
[2019-10-27] MEDS: TUMS EXTRA STRENGTH PO SCH (08:02)
[2019-10-27] MEDS: PROTONIX [NONFORMULARY] PO SCH ×2 (08:02→20:30)
[2019-10-27] MEDS: ATIVAN PO PRN ×2 (08:02→20:30)
[2019-10-27] MEDS: CALTRATE 600 + D PO SCH ×2 (08:02→20:30)
[2019-10-27] MEDS: THERA M PLUS PO SCH (08:02)
[2019-10-27] MEDS: HEPARIN SUBQ SCH ×2 (08:02→20:30)
[2019-10-27] MEDS: K-PHOS PO SCH ×3 (10:23→16:38)
[2019-10-27] MEDS ORDERED: CALCIUM GLUCONATE 4.65 MEQ in NS 50 ML IV ONE (19:38)
--- NOTE | 2019-10-27 20:04 | PROGRESS NOTE ---
DATE: 10/27/2019 SUBJECTIVE: Patient has no major complaints. OBJECTIVE: Vital Signs: Blood pressure 149/70, heart rate of 91, respiratory rate of 14, temperature 98.4, saturation 94% on room air. Cardiovascular: Regular rate and rhythm. Pulmonary: Bilateral breath sounds. Clear to auscultation. GI: Soft, nontender, nondistended. Bowel sounds are positive. PROBLEM LIST: 1. Acute kidney injury which seems to be resolved. 2. Hypocalcemia that also seems to be basically resolved. 3. Metastatic breast cancer. She seems to be doing okay. DISPOSITION: Anticipate discharge tomorrow if stable. cc: Ismael Steve MD
[2019-10-27] MEDS: ZINC SULFATE PO SCH (20:30)
[2019-10-28] MEDS: MORPHINE IR PO PRN ×2 (06:05→16:10)
[2019-10-28] MEDS: SYNTHROID PO SCH (06:05)
[2019-10-28] MEDS: CALTRATE 600 + D PO SCH (09:34)
[2019-10-28] MEDS: TUMS EXTRA STRENGTH PO SCH (09:35)
[2019-10-28] MEDS: PROTONIX [NONFORMULARY] PO SCH (09:35)
[2019-10-28] MEDS: THERA M PLUS PO SCH (09:35)
[2019-10-28] MEDS: K-PHOS PO SCH ×3 (09:35→16:11)
[2019-10-28] MEDS: HEPARIN SUBQ SCH (09:38)
[2019-10-28] MEDS: ATIVAN PO PRN (09:43)
[2019-10-28 11:51] VITALS: BP 150/57
--- NOTE | 2019-11-08 19:42 | DISCHARGE SUMMARY ---
ADMISSION DATE: 10/23/2019 DISCHARGE DATE: 10/28/2019 DISCHARGE DIAGNOSES: 1. Acute kidney injury. 2. Hypocalcemia. 3. Metastatic breast cancer. CONSULTATIONS: Hematology/Oncology. PROCEDURES: None. HOSPITAL COURSE: This is a 74-year-old female who came in with abnormal renal function labs per Dr. Swann, creatinine of 4.3. She had received Lasix recently. She had hypophosphatemia, hypocalcemia so she was admitted directly. She had had Taxotere in September and Xgeva, which I believe is IV bisphosphonate. Renal ultrasound was unremarkable. Lower extremity venous Dopplers did not show DVT. Hem/Onc was consulted. She did develop some hypocalcemia. With hydration, though, her kidney function improved. She was anemic and seemed to be doing okay. She had a history of metastatic breast cancer. So after hydration, her creatinine normalized 3.9 and was 0.9 on the and then she was felt stable for discharge on the . Her hemoglobin and hematocrit were low at 7.7 and 25 but stable. Calcium was up to 6.7 with supplements, but albumin was 2.5. Urine sodium was kind of nonspecific, so she was felt stable for discharge on the . DISCHARGE MEDICATIONS: Ativan 2 p.r.n., morphine IR 15 half tab q.4, multivitamin daily, Reglan 10 q.6, zinc 50 at bedtime, Levaquin 750 daily. I do not think she probably needed that to go home. I think that was done. Phenergan 25 q.6, Protonix 40 b.i.d., Synthroid 100 daily, Tums. DISCHARGE CONDITION: Stable. She will need repeat labs with Dr. Swann in 1 week. Also refer this to Dr. Dao. TIME SPENT: 32-minute discharge. cc: Ismael Steve MD
== END 2019-10-28 17:05 | disposition home health service (06) | DRG 683 ==
LOC: SUATTDRO 10:15 → DIRADM 10:15 → 3N 15:02
PROVIDERS: ATTEND Internal Medicine